=== PATIENT | female | born 1975 | race Caucasian/White ===

== ENCOUNTER 2018-03-31 17:10 | Inpatient (IN) | payer BC, MEDICAID, OTHER ==
--- NOTE | 2018-03-31 17:54 | ED PDOC ---
Arrival/HPI - General Chief Complaint: Fever Time Seen by Provider: 03/31/18 17:13 Historian: Patient - History of Present Illness Narrative History of Present Illness (Text): 03/31/18 17:44 42 year old female, with no significant past medical history and past social history of IVDA, presents to the ED from [facility] ED for evaluation of possible endocarditis today. Patient reports waking up noticing a mass on the right side of her neck, prompting her to present to [facility] ED for medical evaluation. Patient informs having a CT scan performed at the facility where she was made aware of a noted mass without requirement of drainage and was given Clindamycin and Zosyn, and was subsequently transferred to [facility] for further medical evaluation. Patient admits to heroin injection and states her last injection was a week ago. Patient informs pain to the right side of her throat otherwise denies any other associated somatic complaints. Patient denies any fever, chills, nausea, vomiting, abdominal pain, shortness of breath, chest pain, leg swelling or any other complaints. PMD: NONE 03/31/18 20:09 Time/Duration: 4-6 hours Symptom Onset: Gradual Symptom Course: Unchanged Quality: Aching Activities at Onset: Light Context: Other (Transferred from [facility] [place]) Past Medical History - Provider Review Nursing Documentation Reviewed: Yes - Infectious Disease Hx of Infectious Diseases: None - Tetanus Immunization Tetanus Immunization: Unknown - Cardiac Hx Cardiac Disorders: Yes Hx Hypertension: Yes - Pulmonary Hx Respiratory Disorders: No - Neurological Hx Neurological Disorder: No - HEENT Hx HEENT Disorder: No - Renal Hx Renal Disorder: No - Endocrine/Metabolic Hx Endocrine Disorders: No - Hematological/Oncological Hx Blood Disorders: No - Integumentary Hx Dermatological Disorder: No - Musculoskeletal/Rheumatological Hx Musculoskeletal Disorders: No - Gastrointestinal Hx Gastrointestinal Disorders: No - Genitourinary/Gynecological Hx Genitourinary Disorders: No - Psychiatric Hx Psychophysiologic Disorder: No Hx Substance Use: No - Surgical History Hx Tonsillectomy: Yes - Suicidal Assessment Feels Threatened In Home Enviroment: No Family/Social History - Physician Review Nursing Documentation Reviewed: Yes Family/Social History: Unknown Family HX Smoking Status: Current Some Days Smoker Hx Alcohol Use: Yes Hx Substance Use: No Hx Substance Use Treatment: No Allergies/Home Meds Allergies/Adverse Reactions: Allergies No Known Allergies Allergy (Verified 03/31/18 17:31) Home Medications: Home Meds Medication Instructions Recorded Confirmed MetFORMIN [glucOPHAGE] 1,000 mg PO BID 09/10/13 12/19/13 RX: Losartan [Cozaar] 100 mg PO DAILY 09/10/13 12/19/13 Hydrochlorothiazide [HCTZ] 25 mg PO DAILY 12/19/13 12/19/13 Hydroxychloroquine Sulfate 50 mg PO BID 12/19/13 12/19/13 [Plaquenil] Review of Systems - Physician Review All systems were reviewed & negative as marked: Yes - Review of Systems Constitutional: absent: Fevers Eyes: absent: Vision Changes ENT: Other (Mass to right side of the throat) Respiratory: absent: SOB, Cough Cardiovascular: absent: Chest Pain Gastrointestinal: absent: Abdominal Pain, Diarrhea, Nausea, Vomiting Genitourinary Female: absent: Dysuria, Urine Output Changes Musculoskeletal: absent: Back Pain, Neck Pain Skin: absent: Rash Neurological: absent: Headache, Dizziness Physical Exam Vital Signs Reviewed: Yes Vital Signs Temp Pulse Resp BP Pulse Ox 03/31/18 17:24 98.6 F 99 H 17 120/88 98 Temperature: Afebrile Blood Pressure: Normal Pulse: Tachycardic Respiratory Rate: Normal Appearance: Positive for: Well-Appearing, Non-Toxic, Comfortable Pain Distress: None Mental Status: Positive for: Alert and Oriented X 3 - Systems Exam Head: Present: Atraumatic, Normocephalic Pupils: Present: PERRL Extroacular Muscles: Present: EOMI Conjunctiva: Present: Normal Mouth: Present: Moist Mucous Membranes Neck: Present: Other (Right sided anterior mass noted. No airway involvement. No meningeal signs. ). No: Meningeal Signs Respiratory/Chest: Present: Clear to Auscultation, Good Air Exchange. No: Respiratory Distress, Accessory Muscle Use Cardiovascular: Present: Regular Rate and Rhythm, Normal S1, S2. No: Murmurs Abdomen: No: Tenderness, Distention, Peritoneal Signs Back: Present: Normal Inspection Upper Extremity: Present: NORMAL PULSES, Neurovascularly Intact, Other (Right AC 2x4 cm erythema noted, no fluctuance, no induration, no streaking. 2x3cm induration and erythema noted to left upper extremity. Finger tips nontender to palpation. Nail lithuanian on nails noted bilaterally.). No: Cyanosis, Edema Lower Extremity: Present: Normal Inspection. No: Edema Neurological: Present: GCS=15, CN II-XII Intact, Speech Normal Skin: Present: Warm, Dry, Normal Color. No: Rashes Psychiatric: Present: Alert, Oriented x 3, Normal Insight, Normal Concentration Medical Decision Making ED Course and Treatment: 03/31/18 17:38 Impression: 42 year old female presents to the ED for evaluation of right sided neck mass, Transferred from [facility] for Fever, rule out endocarditis as well. Was given Zosyn, Clinda, Fluids and tylenol by previous ER. Previous labs w/ out elevated WBC: lactic of 1.6. b/l AC cellulitis sites noted w/ out fluctuance. No crepitus. Noted erythema and induration. No swelling. No meningeal signs. R neck mass, without airway compromise. No change in phonation / dysphagia / odynophagia. L midline access noted, R midline access previously attempted by [facility]. Differential Diagnosis included but are not limited to: Endocarditis Plan: -- VBG -- EKG -- Labs -- Chest X-ray -- Tylenol -- Blood Culture -- Throat Culture -- Wound Culture -- Urinalysis -- Reassess and disposition Prior Visits: Notes and results from previous visits were reviewed. Progress Notes: 03/31/18 17:38 EKG: Ordered, reviewed, and independently interpreted the EKG. Rate : 97 BPM Rhythm : NSR Interpretation : No STEMI. 03/31/18 19:00 L Midline not flushing. Will seek central line placement. 03/31/18 19:25 PROCEDURE: CENTRAL LINE PLACEMENT Performed by the emergency provider, Time: 19:05 Consent: Discussion of the risks, benefits, and alternatives to the procedure, along with informed consent. Timeout: A timeout to verify the correct patient, procedure, and site was performed. Indication: Bilateral antecubital infections due to previous IV drug use as well as failed midline bilaterally. Right neck mass. Anesthesia: Local anesthesia Skin Preparation: Hand hygiene performed prior to central venous catheter insertion. Sterile field, sterile drape, sterile technique, and cap and gown were used. The area was cleansed with 2% Chlorhexidine. Patient position: Frogleg and supine Location: Right groin Ultrasound guidance: YES Technique: The landmarks for the line placement were identified. The vessel was cannulated and a non-tunneled 7.0 Fr triple lumen was placed using the Seldinger technique. Successful placement: YES . Line sutured with silk and appropriate dressing applied. Assessment: Good patency and blood return through all three lumens. The ports were appropriately flushed. Post-procedure: Patient tolerated the procedure well with no immediate complications 03/31/18 20:17 appreciate consult w/ Dr. Vasquez: Previous labs endorsed to Dr. vasquez: largely unremarkable. We are to admit to his service and order vanco 1g, place consult for ID Dr. Espinoza. Pt in NAD, agreeable to plan. - RAD Interpretation Radiology Orders: 03/31/18 17:38 CHEST TWO VIEWS (PA/LAT) [RAD] Stat - EKG Interpretation Interpreted by ED Physician: Yes Type: 12 lead EKG - Medication Orders Current Medication Orders: Discontinued Medications Acetaminophen (Tylenol 325mg Tab) 650 mg PO STAT STA Stop: 03/31/18 17:45 - Scribe Statement The provider has reviewed the documentation as recorded by the Scribe Hari Jiménez. All medical record entries made by the Scribe were at my direction and personally dictated by me. I have reviewed the chart and agree that the record accurately reflects my personal performance of the history, physical exam, medical decision making, and the department course for this patient. I have also personally directed, reviewed, and agree with the discharge instructions and disposition. Disposition/Present on Arrival - Present on Arrival Any Indicators Present on Arrival: No History of DVT/PE: No History of Uncontrolled Diabetes: Yes Urinary Catheter: No History of Decub. Ulcer: No History Surgical Site Infection Following: None - Disposition Have Diagnosis and Disposition been Completed?: Yes Diagnosis: Cellulitis Disposition: HOSPITALIZED Disposition Time: 20:17 Patient Problems: Current Active Problems Problem Status Onset Cellulitis Acute Condition: GUARDED
[2018-03-31 19:49] LABS: VENOUS BLOOD GAS BASE EXCESS 0.3 mmol/L (0.0-2.0); VENOUS BLOOD GAS PO2 40 mm/Hg (30-55); VENOUS BLOOD PH 7.46 (7.32-7.43)
[2018-03-31 19:54] LABS: EOS % 0.2 % (1.5-5.0); GRAN # 5.6 (1.4-6.5); GRAN % 86.5 % (50.0-68.0); HEMOGLOBIN 11.2 g/dL (12.0-16.0); LYMPH # 0.4 (1.2-3.4); LYMPH % 6.8 % (22.0-35.0); MEAN CELL VOLUME 87.3 fl (80.0-105.0); MEAN CORPUSCULAR HEMOGLOBIN 29.6 pg (25.0-35.0); MEAN CORPUSCULAR HGB CONC 33.8 g/dl (31.0-37.0); MEAN PLATELET VOLUME 10.1 fl (7.0-11.0); MONO # 0.4 (0.1-0.6); MONO % 6.5 % (1.0-6.0); RBC 3.79 10^6/uL (3.5-6.1); RED CELL DISTRIBUTION WIDTH 12.9 % (11.5-14.5); WHITE BLOOD COUNT 6.5 10^3/uL (4.5-11.0)
[2018-03-31] MEDS ORDERED: Vancomycin 1gm in NS 250ml 1 GM/250 ML BAG IVPB STA (20:24)
[2018-03-31 21:09] LABS: ALB/GLOB RATIO 0.9 (1.1-1.8); ALBUMIN 3.3 g/dL (3.0-4.8); ALT/SGPT 27 U/L (7-56); AST/SGOT 35 U/L (14-36); BLOOD UREA NITROGEN 15 mg/dL (7-21); CALCIUM 8.3 mg/dL (8.4-10.5); GFR NON-AFRICAN AMERICAN > 60
[2018-03-31 21:25] LABS: PH,URINE 6.5 (4.7-8.0); URINE BILIRUBIN SMALL (NEGATIVE); URINE BLOOD LARGE (NEGATIVE); URINE GLUCOSE (UA) NEGATIVE (NEGATIVE); URINE LEUKOCYTE ESTERASE NEGATIVE Leu/uL (NEGATIVE); URINE PROTEIN 100 mg/dL (<30 mg/dL)
[2018-03-31 21:26] LABS: URINE APPEARANCE SLIGHT-CLOUDY (CLEAR); URINE COLOR DARK YELLOW (YELLOW)
[2018-03-31 21:28] LABS: URINE WBC 0 - 2 /hpf (0-6)
[2018-03-31 21:29] LABS: URINE BACTERIA NEG (NEG)
--- NOTE | 2018-03-31 21:39 | CARD ---
APPROVED REPORT Date of service: 03/31/2018 EKG Measurement Heart [id number] <Conclusion> Normal sinus rhythm Normal ECG
[2018-03-31 21:40] LABS: TROPONIN I < 0.01 ng/mL
[2018-03-31] MEDS: Vancomycin 1gm in NS 250ml 1 GM/250 ML BAG IVPB SCH (23:55)
[2018-04-01] MEDS ORDERED: Sodium Chloride 0.9% 1,000 ML IV SCH (01:00)
[2018-04-01] MEDS: Piperacillin/Tazobact 3.375 gm 100 ML IVPB SCH ×3 (05:31→21:54)
--- NOTE | 2018-04-01 07:35 | CP.PCM.CON ---
<Aguila Cintron - Last Filed: 04/01/18 11:31> History of Present Illness - History of Present Illness History of Present Illness: Infectious disease consult note for Dr. Duran/Dr. Espinoza service - Vinnie Cintron PGY3 HPI: Patient is a 42yo female with past medical history of IVDA that [facility] [place] for concerns of endocarditis. Patient reportedly discovered a right-sided neck mass which prompted her evaluation [place] [facility] [place] She underwent CT imaging, given clindamycin/zosyn and [place] [facility]. She endorsed injecting heroin regularly with her last injection noted to be a week prior. She subsequently developed right-sided neck/throat pain. Otherwise, she denied fever, chills, cough, chest pain, palpitations, SOB, abdominal pain, nausea, vomiting, focal weakness, numbness, tingling, dysuria, frequency, urgency. ID consulted for evaluation of right-sided neck erythema as well as r/o endocarditis. PMH: as stated above PSH: denies Allergies: NKDA Social Hx: notable for IV drug use (heroin) Family Hx: Noncontributory PMD: Denies Past Patient History - Infectious Disease Hx of Infectious Diseases: None - Tetanus Immunizations Tetanus Immunization: Unknown - Past Social History Smoking Status: Heavy Smoker > 10 Cigarettes Daily - CARDIAC Hx Cardiac Disorders: Yes Hx Angina: No Hx Cardia Arrhythmia: No Hx Circulatory Problems: No Hx Congestive Heart Failure: No Hx Heart Murmur: No Hx Heart Transplant: No Hx Hypercholesterolemia: No Hx Hypertension: Yes Hx Internal Defibrillator: No Hx Mitral Valve Prolapse: No Hx Pacemaker: No Hx Peripheral Edema: No Hx Peripheral Vascular Disease: No - PULMONARY Hx Respiratory Disorders: No Hx Asthma: No Hx Bronchitis: No Hx Chronic Obstructive Pulmonary Disease (COPD): No Hx Emphysema: No Hx Pneumonia: No Hx Respiratory Aspiration: No Hx Respiratory Tract Infection: No Hx Sleep Apnea: No Hx Tuberculosis: No - NEUROLOGICAL Hx Neurological Disorder: No Hx Alzheimer's Disease: No HX Cerebrovascular Accident: No Hx Dementia: No Hx Dizziness: No Hx Meningitis: No Hx Migraine: No Hx Parkinson's Disease: No Hx Seizures: No Hx Transient Ischemic Attacks (TIA): No - HEENT Hx HEENT Problems: No Hx Blind: No Hx Cataracts: No Hx Deafness: No Hx Difficulty Chewing: No Hx Epistaxis: No Hx Glaucoma: No Hx Macular Degeneration: No - RENAL Hx Chronic Kidney Disease: No Hx Dialysis: No Hx Kidney Stones: No Hx Neurogenic Bladder: No Hx Pyelonephritis: No Hx Renal (Kidney) Cancer: No Hx Renal Failure: No - ENDOCRINE/METABOLIC Hx Endocrine Disorders: No Hx Adrenal Cancer: No Hx Diabetes Insipidus: No Hx Diabetes Mellitus Type 1: No Hx Diabetes Mellitus Type 2: No Hx Hyperthyroidism: No Hx Hypothyroidism: No Hx Systemic Lupus Erythematosus: No - HEMATOLOGICAL/ONCOLOGICAL Hx Blood Disorders: No Hx AIDS: No Hx Anemia: No Hx Cancer: No Hx Chemotherapy: No Hx Cirrhosis: No Hx Hemophilia: No Hx Hepatitis A: No Hx Hepatitis B: No Hx Hepatitis C: No Hx Human Immunodeficiency Virus (HIV): No Hx Metastesis: No Hx Shingles: No Hx Sickle Cell Disease: No Hx Unexplained Bleeding: No - INTEGUMENTARY Hx Dermatological Problems: No Hx Basil Cell: No Hx Eczema: No Hx Melanoma: No Hx Psoriasis: No Hx Squamous Cell: No - MUSCULOSKELETAL/RHEUMATOLOGICAL Hx Musculoskeletal Disorders: Yes Hx Arthritis: No Hx Back Pain: No Hx Degenerative Joint Disease: No Hx Falls: No Hx Fractures: No Hx Gout: No Hx Herniated Disk: No Hx Myasthenia Gravis: No Hx Osteoarthritis: No Hx Osteomyelitis: No Hx Osteoporosis: No Hx Rhabdomyolysis: No Hx Spinal Stenosis: No Hx Unsteady Gait: Yes - GASTROINTESTINAL Hx Gastrointestinal Disorders: No Hx Colostomy: No Hx Crohn's Disease: No Hx Diverticulitis: No Hx Gall Bladder Disease: No Hx Gastroesophageal Reflux: No Hx Ileostomy: No Hx Liver Failure: No Hx Pancreatitis: No HX Swallowing Problems: No Hx Ulcer: No - GENITOURINARY/GYNECOLOGICAL Hx Genitourinary Disorders: No Hx Hematuria: No Hx Incontinence: No Hx Sexually Transmitted Disorders: No Hx Urinary Tract Infection: No - PSYCHIATRIC Hx Psychophysiologic Disorder: Yes Hx Anxiety: No Hx Bipolar Disorder: No Hx Depression: Yes Hx Emotional Abuse: No Hx Hallucinations: No Hx Panic Symptoms: No Hx Paranoia: No Hx Post Traumatic Stress Disorder: No Hx Psychosis: No Hx Physical Abuse: No Hx Schizophrenia: No Hx Sexual Abuse: No Hx Substance Use: Yes (IV drug user) - SURGICAL HISTORY Hx Surgeries: Yes (tonsillectomy, ) Hx Amputation: No Hx Appendectomy: No Hx Cardiac Catheterization: No Hx Cholecystectomy: No Hx Coronary Stent: No Hx Gastric Bypass Surgery: No Hx Hysterectomy: No Hx Joint Replacement: No Hx Kidney Transplant: No Hx Liver Transplant: No Hx Mastectomy: No Hx Musculoskeletal Surgery: No Hx Open Heart Surgery: No Hx Orthopedic Surgery: No Hx Splenectomy: No Hx Valve Replacement: No Meds Allergies/Adverse Reactions: Allergies Allergy/AdvReac Type Severity Reaction Status Date / Time No Known Allergies Allergy Verified 03/31/18 17:31 - Medications Medications: Current Medications Vancomycin HCl (Vancomycin 1gm) 1 gm in 250 mls @ 167 mls/hr IVPB Q12H [facility]; Protocol Stop: 04/09/18 23:01 Last Admin: 03/31/18 23:55 Dose: 167 mls/hr Piperacillin Sod/Tazobactam Sod (Zosyn 3.375 In Ns 100ml) 100 mls @ 25 mls/hr IVPB Q8 [facility]; Protocol Stop: 04/10/18 06:01 Last Admin: 04/01/18 05:31 Dose: 25 mls/hr Sodium Chloride (Sodium Chloride 0.9%) 1,000 mls @ 100 mls/hr IV .Q10H CHAVA Last Admin: 04/01/18 01:00 Dose: 100 mls/hr Physical Exam - Constitutional Appears: No Acute Distress - Head Exam Head Exam: ATRAUMATIC, NORMAL INSPECTION, NORMOCEPHALIC - Eye Exam Eye Exam: EOMI Pupil Exam: PERRL - ENT Exam ENT Exam: Mucous Membranes Moist - Neck Exam Additional comments: right-sided anterior neck mass/erythema - Respiratory Exam Respiratory Exam: Clear to Auscultation Bilateral. absent: Rales, Rhonchi, Wheezes - Cardiovascular Exam Cardiovascular Exam: +S1, +S2. absent: Clicks, Gallop, Rubs - GI/Abdominal Exam GI & Abdominal Exam: Normal Bowel Sounds, Soft. absent: Distended, Firm, Guarding, Hernia, Rigid, Tenderness - Extremities Exam Additional comments: erythema noted to right antecubital fossa; ~2x3cm erythema and induration noted to LUE - Neurological Exam Neurological exam: Alert, CN II-XII Intact, Oriented x3 - Psychiatric Exam Psychiatric exam: Normal Affect, Normal Mood - Skin Skin Exam: Dry, Intact, Normal Color, Warm Results - Vital Signs Recent Vital Signs: Last Vital Signs Temp 102.3 F H 04/01/18 06:14 Pulse 91 H 04/01/18 05:50 Resp 20 04/01/18 05:50 BP 136/71 04/01/18 05:50 Pulse Ox 98 04/01/18 05:50 - Labs Result Diagrams: 03/31/18 19:30 03/31/18 19:30 Labs: Laboratory Results - last 24 hr 03/31/18 03/31/18 03/31/18 19:30 19:30 19:45 WBC 6.5 RBC 3.79 Hgb 11.2 L Hct 33.1 L MCV 87.3 MCH 29.6 MCHC 33.8 RDW 12.9 Plt Count 129 MPV 10.1 Gran % 86.5 H Lymph % (Auto) 6.8 L [place] % (Auto) 6.5 H Eos % (Auto) 0.2 L Baso % (Auto) 0.0 Gran # 5.60 Lymph # (Auto) 0.4 L [place] # (Auto) 0.4 Eos # (Auto) 0.0 Baso # (Auto) 0.00 ESR 140 H pO2 40 VBG pH 7.46 H VBG pCO2 33.0 L VBG HCO3 23.5 VBG Total CO2 24.5 VBG O2 Sat (Calc) 82.4 H VBG Base Excess 0.3 VBG Potassium 3.8 Glucose 169 H Lactate 1.5 FiO2 21.0 Sodium 134 135.0 Potassium 3.7 Chloride 104 103.0 Carbon Dioxide 22 Anion Gap 12 BUN 15 Creatinine 0.7 Est GFR ( Amer) > 60 Est GFR (Non-Af Amer) > 60 Random Glucose 171 H Calcium 8.3 L Magnesium 1.7 Total Bilirubin 0.9 AST 35 ALT 27 Alkaline Phosphatase 121 Total Creatine Kinase 134 Troponin I < 0.01 Total Protein 7.0 Albumin 3.3 Globulin 3.6 Albumin/Globulin Ratio 0.9 L Venous Blood Potassium 3.8 Urine Color Urine Appearance Urine pH Ur Specific [place] Urine Protein Urine Glucose (UA) Urine Ketones Urine Blood Urine Nitrate Urine Bilirubin Urine Urobilinogen Ur Leukocyte Esterase Urine RBC Urine WBC Ur Epithelial Cells Urine Bacteria 03/31/18 21:14 WBC RBC Hgb Hct MCV MCH MCHC RDW Plt Count MPV Gran % Lymph % (Auto) [place] % (Auto) Eos % (Auto) Baso % (Auto) Gran # Lymph # (Auto) [place] # (Auto) Eos # (Auto) Baso # (Auto) ESR pO2 VBG pH VBG pCO2 VBG HCO3 VBG Total CO2 VBG O2 Sat (Calc) VBG Base Excess VBG Potassium Glucose Lactate FiO2 Sodium Potassium Chloride Carbon Dioxide Anion Gap BUN Creatinine Est GFR ( Amer) Est GFR (Non-Af Amer) Random Glucose Calcium Magnesium Total Bilirubin AST ALT Alkaline Phosphatase Total Creatine Kinase Troponin I Total Protein Albumin Globulin Albumin/Globulin Ratio Venous Blood Potassium Urine Color Dark yellow Urine Appearance Slight-cloudy Urine pH 6.5 Ur Specific [place] 1.010 Urine Protein 100 H Urine Glucose (UA) Negative Urine Ketones Negative Urine Blood Large H Urine Nitrate Negative Urine Bilirubin Small H Urine Urobilinogen 1.0 H Ur Leukocyte Esterase Negative Urine RBC 1 - 3 Urine WBC 0 - 2 Ur Epithelial Cells 3 - 4 Urine Bacteria Neg Assessment & Plan - Assessment and Plan (Free Text) Plan: 42yo female with history of IVDA (heroin with last injection last week) presents with right-sided neck mass/pain. ID consulted for evaluation of possible endocarditis. right-sided neck cellulitis r/o endocarditis IV drug abuse normocytic anemia Plan: -Patient has empirically been started on zosyn/vancomycin pending panculture -Ultrasound of the neck has been ordered to r/o abscess -Warm compresses to neck -Patient presently only fulfills 2 minor Serna critera: fever and IV drug use; thus endocarditis is less likely -CRP has been ordered -ESR is elevated at 140 -no leukocytosis however patient has had fevers with tmax of 102.8 -HIV 4th gen is pending given her age -EKG reviewed -CXR reviewed Patient seen and case discussed/reviewed with attending, Dr. Duran <Stanford Duran - Last Filed: 04/01/18 21:11> Meds - Medications Medications: Current Medications Alprazolam (Xanax) 1 mg PO TID PRN; Protocol PRN Reason: Anxiety Enoxaparin Sodium (Lovenox) 40 mg SC DAILY [facility]; Protocol Gabapentin (Neurontin) 100 mg PO TID [facility]; Protocol Last Admin: 04/01/18 18:12 Dose: 100 mg Home Med (Home Med) 0 unit SL TID PRN PRN Reason: drug craving Vancomycin HCl (Vancomycin 1gm) 1 gm in 250 mls @ 167 mls/hr IVPB Q12H [facility]; Protocol Stop: 04/09/18 23:01 Last Admin: 04/01/18 11:41 Dose: 167 mls/hr Piperacillin Sod/Tazobactam Sod (Zosyn 3.375 In Ns 100ml) 100 mls @ 25 mls/hr IVPB Q8 [facility]; Protocol Stop: 04/10/18 06:01 Last Admin: 04/01/18 14:49 Dose: 25 mls/hr Losartan Potassium (Cozaar) 100 mg PO DAILY [facility] Last Admin: 04/01/18 11:40 Dose: 100 mg Metformin HCl (Glucophage) 850 mg PO BID [facility] Last Admin: 04/01/18 18:13 Dose: 850 mg Mirtazapine (Remeron) 15 mg PO HS [facility] Nicotine (Nicoderm Cq) 1 patch TD DAILY [facility] Last Admin: 04/01/18 18:13 Dose: 1 patch Results - Vital Signs Recent Vital Signs: Last Vital Signs Temp 98.1 F 04/01/18 18:00 Pulse 91 H 04/01/18 18:00 Resp 19 04/01/18 18:00 BP 127/72 04/01/18 18:00 Pulse Ox 98 04/01/18 05:50 - Labs Result Diagrams: 03/31/18 19:30 03/31/18 19:30 Labs: Laboratory Results - last 24 hr 03/31/18 03/31/18 03/31/18 19:30 19:30 21:14 Sodium 134 Potassium 3.7 Chloride 104 Carbon Dioxide 22 Anion Gap 12 BUN 15 Creatinine 0.7 Est GFR ( Amer) > 60 Est GFR (Non-Af Amer) > 60 POC Glucose (mg/dL) Random Glucose 171 H Calcium 8.3 L Magnesium 1.7 Total Bilirubin 0.9 AST 35 ALT 27 Alkaline Phosphatase 121 Total Creatine Kinase 134 Troponin I < 0.01 C-Reactive Protein 264.50 H Total Protein 7.0 Albumin 3.3 Globulin 3.6 Albumin/Globulin Ratio 0.9 L Urine Color Dark yellow Urine Appearance Slight-cloudy Urine pH 6.5 Ur Specific [place] 1.010 Urine Protein 100 H Urine Glucose (UA) Negative Urine Ketones Negative Urine Blood Large H Urine Nitrate Negative Urine Bilirubin Small H Urine Urobilinogen 1.0 H Ur Leukocyte Esterase Negative Urine RBC 1 - 3 Urine WBC 0 - 2 Ur Epithelial Cells 3 - 4 Urine Bacteria Neg 04/01/18 04/01/18 04/01/18 11:42 17:32 17:38 Sodium Potassium Chloride Carbon Dioxide Anion Gap BUN Creatinine Est GFR ( Amer) Est GFR (Non-Af Amer) POC Glucose (mg/dL) 159 H 89 133 H Random Glucose Calcium Magnesium Total Bilirubin AST ALT Alkaline Phosphatase Total Creatine Kinase Troponin I C-Reactive Protein Total Protein Albumin Globulin Albumin/Globulin Ratio Urine Color Urine Appearance Urine pH Ur Specific [place] Urine Protein Urine Glucose (UA) Urine Ketones Urine Blood Urine Nitrate Urine Bilirubin Urine Urobilinogen Ur Leukocyte Esterase Urine RBC Urine WBC Ur Epithelial Cells Urine Bacteria Assessment & Plan - Assessment and Plan (Free Text) Plan: Infectious diseases Attending Physician Attestation Patient seen and examined, discussed with medical office administrator. I have reviewed the patient's history of present illness, past medical, social, personal and family histories, pertinent physical exam findings, course so far in this hospital admission, pertinent laboratory and imaging results. I agree with the above findings, assessment and plan. In addition, we have started Vancomycin for this patient with neck skin and skin structure infection, R/O abscess. Follow up ultrasound of the neck and check blood cx. Check HIV test. Will monitor clinically.
--- NOTE | 2018-04-01 09:40 | RAD ---
Date of service: 03/31/2018 PROCEDURE: CHEST RADIOGRAPH, 1 VIEW HISTORY: ?endocarditis COMPARISON: None available. FINDINGS: LUNGS: Right lower lobe infiltrate/atelectasis (linear). She PLEURA: No pneumothorax or pleural fluid seen. CARDIOVASCULAR: No aortic atherosclerotic calcification present. Normal. OSSEOUS STRUCTURES: No significant abnormalities. VISUALIZED UPPER ABDOMEN: Normal. OTHER FINDINGS: None. IMPRESSION: Right lower lobe infiltrate/atelectasis accentuated by portable technique and low lung volumes
[2018-04-01] MEDS: Vancomycin 1gm in NS 250ml 1 GM/250 ML BAG IVPB SCH (11:41)
--- NOTE | 2018-04-01 15:19 | US ---
Date of service: 04/01/2018 PROCEDURE: Ultrasound examination of the right neck soft tissue HISTORY: US of right neck to r/o abscess COMPARISON: No prior similar study available for comparison. TECHNIQUE: Limited ultrasound examination of the right neck were obtained. FINDINGS: The study demonstrate multiple small soft tissue nodule at the right neck with the largest measures 0.7 x 0.6 x 0.8 centimeter likely represent enlarged lymph nodes. No evidence of lymphadenopathy in the left neck. The right jugular vein and right common carotid artery are patent.. IMPRESSION: Multiple soft tissue nodules in the right neck likely represent mildly enlarged lymph nodes.
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
[2018-04-02] MEDS: Vancomycin 1gm in NS 250ml 1 GM/250 ML BAG IVPB SCH (00:27)
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
[2018-04-02 02:21] LABS: BARBITURATES, UR NEGATIVE (NEGATIVE); BENZODIAZEPINES, UR POSITIVE (NEGATIVE); OPIATES, UR POSITIVE (NEGATIVE); PHENCYCLIDINE, UR NEGATIVE (NEGATIVE)
[2018-04-02] MEDS: Piperacillin/Tazobact 3.375 gm 100 ML IVPB SCH ×3 (05:19→21:16)
[2018-04-02] MEDS ORDERED: DAPTOmycin 500 mg Inj (Cubicin) IV SCH (07:00)
[2018-04-02 07:03] LABS: GLUCOSE,FASTING 164 mg/dL (65-110); HDL CHOLESTEROL 15 mg/dL (29-60)
[2018-04-02 07:15] LABS: LDL CHOLESTEROL 72 mg/dL (0-129)
[2018-04-02] MEDS: Enoxaparin 40 mg Syringe SC SCH (10:22)
[2018-04-02] MEDS: DAPTOmycin 700 MG in Sodium Chloride 0.9% 100 ML IV SCH (10:22)
[2018-04-02 10:36] VITALS: BMI 27.4
--- NOTE | 2018-04-02 19:04 | CP.PCM.PN ---
Subjective - Date & Time of Evaluation Date of Evaluation: 04/02/18 Time of Evaluation: 10:40 - Subjective Subjective: Still having fevers, no nausea, not in distress but still with right sided neck and chest pain. Objective - Vital Signs/Intake and Output Vital Signs (last 24 hours): Temp Pulse Resp BP Pulse Ox 98.1 F 91 H 19 127/72 98 04/01/18 18:00 04/01/18 18:00 04/01/18 18:00 04/01/18 18:00 04/01/18 05:50 Intake and Output: 04/01/18 04/02/18 18:59 06:59 Intake Total 550 Balance 550 - Medications Medications: Current Medications Alprazolam (Xanax) 1 mg PO TID PRN; Protocol PRN Reason: Anxiety Enoxaparin Sodium (Lovenox) 40 mg SC DAILY [facility]; Protocol Gabapentin (Neurontin) 100 mg PO TID [facility]; Protocol Last Admin: 04/01/18 18:12 Dose: 100 mg Home Med (Home Med) 0 unit SL TID PRN PRN Reason: drug craving Vancomycin HCl (Vancomycin 1gm) 1 gm in 250 mls @ 167 mls/hr IVPB Q12H [facility]; Protocol Stop: 04/09/18 23:01 Last Admin: 04/01/18 11:41 Dose: 167 mls/hr Piperacillin Sod/Tazobactam Sod (Zosyn 3.375 In Ns 100ml) 100 mls @ 25 mls/hr IVPB Q8 [facility]; Protocol Stop: 04/10/18 06:01 Last Admin: 04/01/18 14:49 Dose: 25 mls/hr Losartan Potassium (Cozaar) 100 mg PO DAILY [facility] Last Admin: 04/01/18 11:40 Dose: 100 mg Metformin HCl (Glucophage) 850 mg PO BID [facility] Last Admin: 04/01/18 18:13 Dose: 850 mg Mirtazapine (Remeron) 15 mg PO HS [facility] Nicotine (Nicoderm Cq) 1 patch TD DAILY [facility] Last Admin: 04/01/18 18:13 Dose: 1 patch - Labs Labs: 03/31/18 19:30 03/31/18 19:30 - Constitutional Appears: Chronically Ill - Head Exam Head Exam: NORMAL INSPECTION - Neck Exam Additional comments: erythema and tenderness on the right neck and chest area - Respiratory Exam Respiratory Exam: Decreased Breath Sounds - Cardiovascular Exam Cardiovascular Exam: +S1, +S2 - GI/Abdominal Exam GI & Abdominal Exam: Soft. absent: Tenderness Assessment and Plan - Assessment and Plan (Free Text) Plan: Assessment Sepsis due to Staph aureus bacteremia associated with right neck and chest skin and skin structure infection, R/O endocarditis in this patient with IVDA morbid obesity with BMI 47 Plan Started patient on Daptomycin pending repeat blood cx, 2D echo follow up HIV test will monitor clinically
[2018-04-02] MEDS: SUBOXONE SL PRN (22:19)
[2018-04-03] MEDS: SUBOXONE SL PRN ×3 (05:15→20:29)
[2018-04-03] MEDS: Piperacillin/Tazobact 3.375 gm 100 ML IVPB SCH ×3 (05:16→21:46)
[2018-04-03] MEDS: DAPTOmycin 700 MG in Sodium Chloride 0.9% 100 ML IV SCH (08:09)
[2018-04-03] MEDS: Enoxaparin 40 mg Syringe SC SCH (09:27)
--- NOTE | 2018-04-03 10:40 | CP.PCM.PN ---
Subjective - Date & Time of Evaluation Date of Evaluation: 04/03/18 Time of Evaluation: 09:10 - Subjective Subjective: Still having pains in the right chest, extends to right shoulder area (pain), no fevers this morning, no abdominal pain but feels anxious. Objective - Vital Signs/Intake and Output Vital Signs (last 24 hours): Temp Pulse Resp BP Pulse Ox 98.4 F 79 18 134/69 95 04/02/18 15:58 04/02/18 12:00 04/02/18 12:00 04/02/18 12:00 04/02/18 06:00 Intake and Output: 04/02/18 04/03/18 18:59 06:59 Intake Total 540 Output Total 900 Balance -360 - Medications Medications: Current Medications Acetaminophen (Tylenol 325mg Tab) 650 mg PO Q6H PRN PRN Reason: Fever >100.4 F Last Admin: 04/02/18 14:58 Dose: 650 mg Alprazolam (Xanax) 1 mg PO TID PRN; Protocol PRN Reason: Anxiety Last Admin: 04/02/18 17:48 Dose: 1 mg Enoxaparin Sodium (Lovenox) 40 mg SC DAILY [facility]; Protocol Last Admin: 04/02/18 10:22 Dose: 40 mg Gabapentin (Neurontin) 100 mg PO TID [facility]; Protocol Last Admin: 04/02/18 17:48 Dose: 100 mg Home Med (Home Med) 0 unit SL TID PRN PRN Reason: drug craving Piperacillin Sod/Tazobactam Sod (Zosyn 3.375 In Ns 100ml) 100 mls @ 25 mls/hr IVPB Q8 [facility]; Protocol Stop: 04/10/18 06:01 Last Admin: 04/02/18 14:20 Dose: 25 mls/hr Daptomycin 700 mg/ Sodium (Chloride) 100 mls @ 200 mls/hr IV Q24H [facility] Stop: 04/07/18 07:16 Last Admin: 04/02/18 10:22 Dose: 200 mls/hr Ketorolac Tromethamine (Toradol) 30 mg IVP Q6 PRN PRN Reason: Pain, moderate (4-7) Stop: 04/04/18 14:00 Last Admin: 04/02/18 14:58 Dose: 30 mg Losartan Potassium (Cozaar) 100 mg PO DAILY [facility] Last Admin: 04/02/18 10:22 Dose: 100 mg Metformin HCl (Glucophage) 850 mg PO BID [facility] Last Admin: 04/02/18 17:48 Dose: 850 mg Mirtazapine (Remeron) 15 mg PO HS [facility] Last Admin: 04/01/18 21:54 Dose: 15 mg Nicotine (Nicoderm Cq) 1 patch TD DAILY [facility] Last Admin: 04/02/18 10:22 Dose: 1 patch Pantoprazole Sodium (Protonix Inj) 40 mg IVP DAILY [facility] Last Admin: 04/02/18 14:58 Dose: 40 mg - Labs Labs: 03/31/18 19:30 03/31/18 19:30 - Constitutional Appears: No Acute Distress, Chronically Ill - Head Exam Head Exam: NORMAL INSPECTION - ENT Exam ENT Exam: Mucous Membranes Moist - Neck Exam Neck Exam: absent: Meningismus - Respiratory Exam Respiratory Exam: Decreased Breath Sounds - Cardiovascular Exam Cardiovascular Exam: +S1, +S2 - GI/Abdominal Exam GI & Abdominal Exam: Soft. absent: Tenderness - Extremities Exam Additional comments: right anterior chest area with tenderness and erythema Assessment and Plan - Assessment and Plan (Free Text) Plan: Assessment Sepsis due to persistent Methicillin-sensitive Staph aureus bacteremia associated with right neck and chest skin and skin structure infection, R/O right arm skin and skin structure infection R/O endocarditis in this patient with IVDA morbid obesity with BMI 47 Plan we can switch Daptomycin to Nafcillin; repeat blood cx are still positive and will repeat again tomorrow; follow up 2D echo and will get CT chest and CT right arm follow up HIV test will continue to monitor clinically
--- NOTE | 2018-04-03 16:38 | CT ---
Date of service: 04/03/2018 Indication: rule out right arm abscess/inflammation Right upper extremity with IV contrast Comparison: None available Findings: Limited study due to patient condition/motion and habitus. Partially imaged soft tissue stranding and numerous sub cm lymph nodes within the included portions of the lower neck. No discrete abscess or fluid collection noted within the soft tissues of the right lateral chest wall. Please note that the right arm was not imaged. Included ribs without acute displaced fracture. Humeral head is located. The distal right clavicle and scapula appear intact. The proximal humerus without acute fracture. Limited included soft tissues of the right upper extremity without discrete abscess or fluid collection.. Impression: Markedly limited study. Please note that the patient's right arm was not imaged. No discrete fluid collection or abscess evident within the included portions of the right lateral chest wall or limited visualized upper extremity soft tissues. Partially imaged soft tissue stranding and numerous sub cm lymph nodes within the included portions of the lower neck.
--- NOTE | 2018-04-03 16:58 | CT ---
Date of service: 04/03/2018 CT chest with IV contrast Indication: rule out right chest wall abscess/inflammation Technique: Contiguous axial images were obtained through the chest with intravenous contrast enhancement. Sagittal and coronal reconstructions were generated and reviewed. This CT exam was performed using 1 or more of the following dose reduction techniques: Automated exposure control, adjustment of the MAA and/or kV according to patient size, and/or use of iterative reconstruction technique. IV contrast: 150 mL Omnipaque 350 IV Radiation dose (DLP): 780.96 MGy-cm. Comparison: Chest x-ray performed 03/31/18 Findings: Soft tissue swelling, stranding, and foci of gas evident within the infraclavicular space: Ill-defined suspected abscess possibly measuring approximately 1.5 x 3.1 cm (series 4, image 21). There is evidence of supraclavicular subcutaneous stranding and phlegmon. Additionally, please note asymmetry of the right to arouse major and sternocleidomastoid muscle consistent with inflammation/infection. Innumerable lymph nodes evident throughout the lower neck and axilla. Heterogeneous appearance of the right internal jugular vein worrisome for thrombus. Visualized portions of the inferior thyroid gland appear unremarkable. The heart appears within normal limits of size. Sub cm prevascular nodes nonspecific. Mild bibasilar atelectasis. No pleural effusion. No pneumothorax. Limited visualization of the upper abdomen demonstrates partially imaged splenomegaly. Degenerative changes of the spine. Impression: Soft tissue swelling, stranding, and foci of gas evident within the infraclavicular space appears consistent with abscess. There is evidence of supraclavicular subcutaneous stranding and phlegmon. Additionally, please note asymmetry of the right musculature of the chest likely resultant from inflammation/infection. Innumerable lymph nodes within the right axilla and lower neck. Heterogeneous appearance of the right internal jugular vein worrisome for thrombus. Recommend correlation with Doppler ultrasound. Partially imaged splenomegaly. Findings discussed with the patient's RN James Reeves on 04/03/18 at 4:50 p.m..
--- NOTE | 2018-04-03 23:49 | HP ---
DATE OF EXAM: 04/01/2018 REASON FOR ADMISSION: She has fever, neck mass , and history of IV drug abuse of heroin. HISTORY OF PRESENT ILLNESS: This is a 42-year-old female who complained of having problem with heroin IV use for years. She has been using that for almost 10 plus years and by friends give it to her, she lives with her sister, and sister's boyfriend apartment. She has 2 children. The patient is not working. As she mentioned, she has been using drugs. She got recent enlarged mass seen in [facility] for the same reason was discharged, however, the patient came in because of same symptoms of pain, neck mass, fever, and feeling sick and weak. She denied any nausea or vomiting. PAST MEDICAL HISTORY: As I mentioned obesity,hypertension, diabetes, IV drug use of heroin for years. SOCIAL HISTORY: She smokes almost 1-1/2 pack a day. She does not drink alcohol. She uses heroin and she is having both bilaterally and she lives with her sister and her sister's boyfriend with 2 children. FAMILY HISTORY: Noncontributory. MEDICATIONS: She does take her medications at home. She takes tramadol t.i.d., Suboxone, 1 time, she takes Bactrim, Cozaar, Plaquenil, hydrochlorothiazide 25 mg, she is getting clindamycin recently and she was getting Xanax 2 mg four times a day. We are not clear how many times she is taking. PHYSICAL EXAMINATION: VITAL SIGNS: Temperature 102.3, heart rate 91, blood pressure 136/71, respirations 20, saturation 98%. HEAD AND NECK: Normal except there is large right neck mass with multiple nodularity. CHEST: Clear bilateral. CARDIOVASCULAR: First sound and second sound normal. ABDOMEN: Obese and nontender. EXTREMITIES: There is no edema, but there is some scratches and scars. Also, there is right inguinal IV site. NEUROLOGICAL: She moves all extremities. She is alert, awake, and oriented x3. REVIEW OF SYSTEMS: She does complain of weakness. She also have denied any focal weakness like in leg or arm. Does not have any other symptoms. No GI symptoms. No respiratory symptoms, except the whole review of systems are negative except for in present illness. LABORATORY DATA: White count 6.5, hemoglobin 11.2, hematocrit 33.1, and platelets 129. Chemistry which shows the following; sodium 134, potassium 3.7, chloride 104, bicarbonate 22, BUN is 15, and creatinine 0.7. Blood sugar 171, calcium 8.3. Liver function test is normal. C-reactive protein is very high 264. IMPRESSION AND PLAN: This is a 42-year-old female with a history of intravenous drug use of heroin. She also has hypertension, diabetes, came in over the neck mass, cellulitis in the antecubital area, and fever. We will admit the patient. 1. For stability, we will get blood cultures x2. We will give vancomycin and Zosyn for now IV. ID consult is Dr. Espinoza. 2. History of intravenous drug use. We will give her Suboxone strips. She has been using it to get it from outpatient for now. The patient advised not to take any drugs from anybody while you are in the hospital. She may need to be on medications, probably in an injectable form and outpatient for prevention for heroin abuse. The patient will need a psychiatric evaluation, which has been consulted. She need social and she need some cognitive therapy, family therapy, and probably narcotic anonymous program to be attending. She should be encouraged to addend these and to be working with us. 3. Diabetes, hypertension; resume medication monitor blood pressure. 4. Tobacco abuse. We will give her a Nicorette patch. I will give her 1 patch at night and I will see she will do. We are going to add also Neurontin, , and Suboxone to control her symptoms. She does not seem she need clonidine because of hypertension side effects, we will continue current therapy. Dom Steele MD
[2018-04-04] MEDS: Piperacillin/Tazobact 3.375 gm 100 ML IVPB SCH (05:26)
[2018-04-04] MEDS: SUBOXONE SL PRN (05:48)
--- NOTE | 2018-04-04 07:45 | CP.PCM.PN ---
Subjective - Date & Time of Evaluation Date of Evaluation: 04/04/18 Time of Evaluation: 06:20 - Subjective Subjective: Awake, sitting at side of bed,no distress Reason for consultation and follow up: Cardiac evaluation to rule out endocarditis, admitted for swelling of neck. heroin abuse Seen and examined by me and Dr. Garrido Objective - Vital Signs/Intake and Output Vital Signs (last 24 hours): Temp Pulse Resp BP Pulse Ox 98.1 F 85 22 102/56 L 98 04/04/18 06:00 04/04/18 06:00 04/04/18 06:00 04/04/18 06:00 04/04/18 06:00 Intake and Output: 04/04/18 04/04/18 06:59 18:59 Intake Total 980 Balance 980 - Medications Medications: Current Medications Acetaminophen (Tylenol 325mg Tab) 650 mg PO Q6H PRN PRN Reason: Fever >100.4 F Last Admin: 04/02/18 22:43 Dose: 650 mg Alprazolam (Xanax) 1 mg PO TID PRN; Protocol PRN Reason: Anxiety Last Admin: 04/04/18 05:48 Dose: 1 mg Aspirin (Aspirin Chewable) 81 mg PO DAILY [facility] Last Admin: 04/03/18 20:29 Dose: 81 mg Enoxaparin Sodium (Lovenox) 40 mg SC DAILY [facility]; Protocol Last Admin: 04/03/18 09:27 Dose: 40 mg Gabapentin (Neurontin) 100 mg PO TID [facility]; Protocol Last Admin: 04/03/18 18:15 Dose: 100 mg Home Med (Home Med) 1 unit SL TID PRN PRN Reason: drug craving Last Admin: 04/04/18 05:48 Dose: 1 unit Piperacillin Sod/Tazobactam Sod (Zosyn 3.375 In Ns 100ml) 100 mls @ 25 mls/hr IVPB Q8 [facility]; Protocol Stop: 04/10/18 06:01 Last Admin: 04/04/18 05:26 Dose: 25 mls/hr Nafcillin Sodium 2 gm/ (Dextrose) 100 mls @ 100 mls/hr IVPB Q4 [facility]; Protocol Last Admin: 04/04/18 05:00 Dose: 100 mls/hr Ketorolac Tromethamine (Toradol) 30 mg IVP Q6 PRN PRN Reason: Pain, moderate (4-7) Stop: 04/04/18 14:00 Last Admin: 04/02/18 22:42 Dose: 30 mg Losartan Potassium (Cozaar) 100 mg PO DAILY [facility] Last Admin: 04/03/18 09:33 Dose: 100 mg Metformin HCl (Glucophage) 850 mg PO BID [facility] Last Admin: 04/03/18 18:14 Dose: 850 mg Mirtazapine (Remeron) 15 mg PO HS [facility] Last Admin: 04/03/18 22:10 Dose: 15 mg Nicotine (Nicoderm Cq) 1 patch TD DAILY [facility] Last Admin: 04/03/18 09:27 Dose: 1 patch Pantoprazole Sodium (Protonix Inj) 40 mg IVP DAILY [facility] Last Admin: 04/03/18 09:27 Dose: 40 mg - Labs Labs: 03/31/18 19:30 03/31/18 19:30 - Constitutional Appears: Non-toxic, No Acute Distress - Head Exam Head Exam: NORMAL INSPECTION, NORMOCEPHALIC - ENT Exam ENT Exam: Mucous Membranes Moist, Normal Exam Additional comments: neck swelling on the right side, tender to touch - Respiratory Exam Respiratory Exam: Decreased Breath Sounds, Clear to Ausculation Bilateral, NORMAL BREATHING PATTERN - Cardiovascular Exam Cardiovascular Exam: REGULAR RHYTHM, +S1, +S2 Additional comments: telemetry NSR 70-80's - GI/Abdominal Exam GI & Abdominal Exam: Soft, Normal Bowel Sounds - Extremities Exam Extremities Exam: Full ROM, Normal Capillary Refill - Neurological Exam Neurological Exam: Alert, Awake, Oriented x3 - Psychiatric Exam Psychiatric exam: Normal Affect, Normal Mood - Skin Skin Exam: Dry, Normal Color, Warm Assessment and Plan - Assessment and Plan (Free Text) Assessment: A 42 year old female who came in to the [facility] for evaluation of right side neck swelling. She was evaluated at [facility]. CT of neck was done and a mass was noted. Referred to [facility] for further evaluation. History of Heroin abuse (IVDA). Her last heroin injection was last week. History of COPD,depression, obesity and current smoker. Denies chest pain or shortness of breath. Consult was called to rule out endocarditis. CT of chest done, heterogenous apperance of the right IJ vein worrisome for thrombus, soft tissue swelling. Ultrasound of right neck soft tissue-multiple soft tissue nodules likely represent mildly enlarged lymph nodes. EKG- normal sinus rhythm, no ischemia. Troponin normal. Blood cultures x 2 sets preliminary report positive for gram positive cocci . No cardiac work up done at [facility]. Plan: Echo to evaluate LV function and vegetations, will follow up result Blood cultures x 2 sets preliminary report positive for gram positive cocci Heart rate stable Blood pressure stable Continue IV antibiotics per ID Continue current treatment Continue current medications Further recommendations during hospital course Will follow up Plan and treatment discussed with Dr. Garrido
[2018-04-04] MEDS: Enoxaparin 40 mg Syringe SC SCH (09:06)
--- NOTE | 2018-04-04 09:15 | PN ---
DATE: 04/02/2018 SUBJECTIVE: A 42-year-old female who has fever today. She is alert, awake and oriented x3. about heroin bags in the patient's room has been taken by the police. The patient advised not to take anything, it would be very dangerous for her, not helping her treatment plan. However, patient seems otherwise stable. No new complaints, except sometimes she complained of back pain. No chest pain. No shortness of breath. PHYSICAL EXAMINATION: VITAL SIGNS: Temperature 103, heart rate 96, blood pressure 146/78, respirations 20 and saturation 94% on room air. HEAD AND NECK: Normal. No JVD. No thyromegaly. CHEST: Clear bilaterally. CARDIAC: First sound and second sound normal. No murmur, rub or gallop. ABDOMEN: Soft and nontender. Obese. EXTREMITIES: No edema. There is IV line in right groin area, some thorne and cellulitis on the right antecubital fossa mass. NEUROLOGIC: Normal. She moves all extremities. She is alert, awake and oriented x3. LABORATORY DATA: Her blood sugar runs 150. Hemoglobin A1c was 7.1. The patient is otherwise stable. She does have a blood culture which shows Gram-positive cocci and Staphylococcus aureus also has grown up and has been to Dr. Espinoza to take care of this. IMPRESSION AND PLAN: 1. Endocarditis. We will get an echocardiogram, probably she will need a transesophageal echo, continue right now IV antibiotics, daptomycin was placed and on Zosyn. We will continue to follow up with ID consultation and his recommendations. Continue current IV treatment. Echo done, no report yet . 2. IV heroin use. The patient has drug use disorder. We will give her , however, the patient would need more treatment. Continue Remeron, Neurontin and we will follow up clinically. 3. Tobacco abuse, continue Nicoderm. 4. Diabetes, hypertension. Continue insulin coverage. 5. Continue gastrointestinal and deep venous thrombosis prophylaxis. 6. Chronic anxiety being on Xanax. We do not know whether this is Xanax, she is probably addicted to it or has been using it for and anxiety, it is difficult to know. We will get Psychiatry to follow up on that. Continue current therapy, follow up clinically. Dom Steele MD
[2018-04-04 10:05] LABS: HEMOGLOBIN 10.5 g/dL (12.0-16.0); MEAN CELL VOLUME 89.6 fl (80.0-105.0); MEAN CORPUSCULAR HEMOGLOBIN 29.5 pg (25.0-35.0); MEAN CORPUSCULAR HGB CONC 32.9 g/dl (31.0-37.0); MEAN PLATELET VOLUME 10.5 fl (7.0-11.0); RBC 3.56 10^6/uL (3.5-6.1); RED CELL DISTRIBUTION WIDTH 13.9 % (11.5-14.5); WHITE BLOOD COUNT 8.9 10^3/uL (4.5-11.0)
--- NOTE | 2018-04-04 10:12 | CP.PCM.PN ---
<Hieu Ozuna - Last Filed: 04/04/18 10:07> Subjective - Date & Time of Evaluation Date of Evaluation: 04/04/18 Time of Evaluation: 09:00 - Subjective Subjective: ID Progress Note Patient seen and examined. Patient states she feels better than yesterday. No fevers overnight. Denies chest pain, shortness of breath, nausea, vomiting, diarrhea. Objective - Vital Signs/Intake and Output Vital Signs (last 24 hours): Temp Pulse Resp BP Pulse Ox 98.1 F 77 22 106/54 L 98 04/04/18 06:00 04/04/18 09:05 04/04/18 06:00 04/04/18 09:05 04/04/18 06:00 Intake and Output: 04/04/18 04/04/18 06:59 18:59 Intake Total 980 Balance 980 - Medications Medications: Current Medications Acetaminophen (Tylenol 325mg Tab) 650 mg PO Q6H PRN PRN Reason: Fever >100.4 F Last Admin: 04/02/18 22:43 Dose: 650 mg Alprazolam (Xanax) 1 mg PO TID PRN; Protocol PRN Reason: Anxiety Last Admin: 04/04/18 05:48 Dose: 1 mg Aspirin (Aspirin Chewable) 81 mg PO DAILY [facility] Last Admin: 04/04/18 09:06 Dose: 81 mg Enoxaparin Sodium (Lovenox) 40 mg SC DAILY [facility]; Protocol Last Admin: 04/04/18 09:06 Dose: 40 mg Gabapentin (Neurontin) 100 mg PO TID [facility]; Protocol Last Admin: 04/04/18 09:07 Dose: 100 mg Home Med (Home Med) 1 unit SL TID PRN PRN Reason: drug craving Last Admin: 04/04/18 05:48 Dose: 1 unit Piperacillin Sod/Tazobactam Sod (Zosyn 3.375 In Ns 100ml) 100 mls @ 25 mls/hr IVPB Q8 [facility]; Protocol Stop: 04/10/18 06:01 Last Admin: 04/04/18 05:26 Dose: 25 mls/hr Nafcillin Sodium 2 gm/ (Dextrose) 100 mls @ 100 mls/hr IVPB Q4 [facility]; Protocol Last Admin: 04/04/18 09:52 Dose: 100 mls/hr Ketorolac Tromethamine (Toradol) 30 mg IVP Q6 PRN PRN Reason: Pain, moderate (4-7) Stop: 04/04/18 14:00 Last Admin: 04/04/18 09:55 Dose: 30 mg Losartan Potassium (Cozaar) 50 mg PO DAILY [facility] Last Admin: 04/04/18 09:05 Dose: 50 mg Metformin HCl (Glucophage) 850 mg PO BID [facility] Last Admin: 04/04/18 09:07 Dose: 850 mg Mirtazapine (Remeron) 15 mg PO HS [facility] Last Admin: 04/03/18 22:10 Dose: 15 mg Nicotine (Nicoderm Cq) 1 patch TD DAILY [facility] Last Admin: 04/04/18 09:07 Dose: 1 patch Pantoprazole Sodium (Protonix Inj) 40 mg IVP DAILY [facility] Last Admin: 04/04/18 09:07 Dose: 40 mg - Labs Labs: 04/04/18 09:50 03/31/18 19:30 - Constitutional Appears: Non-toxic, No Acute Distress - Head Exam Head Exam: ATRAUMATIC, NORMAL INSPECTION, NORMOCEPHALIC - ENT Exam ENT Exam: Mucous Membranes Moist - Respiratory Exam Respiratory Exam: Clear to Ausculation Bilateral, NORMAL BREATHING PATTERN. absent: Rales, Rhonchi, Wheezes - Cardiovascular Exam Cardiovascular Exam: RRR, +S1, +S2 - GI/Abdominal Exam GI & Abdominal Exam: Soft, Normal Bowel Sounds. absent: Tenderness - Extremities Exam Extremities Exam: absent: Pedal Edema - Neurological Exam Neurological Exam: Alert, Awake, Oriented x3 - Psychiatric Exam Psychiatric exam: Anxious - Skin Skin Exam: Erythema (Right neck and upper right chest. Tender to palpation ), Intact, Warm Assessment and Plan - Assessment and Plan (Free Text) Plan: Sepsis secondary to MSSA bacteremia with right neck and chest cellulitis R/O endocarditis Hx of IVDA with Heroin Morbid Obesity BMI 47 Continue on Nafcillin and Zosyn Blood cultures remain positive, recent cultures show gram + cocci Echocardiogram read pending HIV negative Will continue to monitor Bhagwandin, PGY-3 <Stanford Duran - Last Filed: 04/04/18 14:04> Objective - Vital Signs/Intake and Output Vital Signs (last 24 hours): Temp Pulse Resp BP Pulse Ox 97.1 F L 69 19 94/52 L 98 12/17/18 12:00 04/04/18 12:00 04/04/18 12:00 04/04/18 12:00 04/04/18 06:00 Intake and Output: 04/04/18 04/04/18 06:59 18:59 Intake Total 980 Balance 980 - Medications Medications: Current Medications Acetaminophen (Tylenol 325mg Tab) 650 mg PO Q6H PRN PRN Reason: Fever >100.4 F Last Admin: 04/02/18 22:43 Dose: 650 mg Alprazolam (Xanax) 1 mg PO TID PRN; Protocol PRN Reason: Anxiety Last Admin: 04/04/18 05:48 Dose: 1 mg Aspirin (Aspirin Chewable) 81 mg PO DAILY [facility] Last Admin: 04/04/18 09:06 Dose: 81 mg Enoxaparin Sodium (Lovenox) 40 mg SC DAILY [facility]; Protocol Last Admin: 04/04/18 09:06 Dose: 40 mg Gabapentin (Neurontin) 100 mg PO TID [facility]; Protocol Last Admin: 04/04/18 09:07 Dose: 100 mg Home Med (Home Med) 1 unit SL TID PRN PRN Reason: drug craving Last Admin: 04/04/18 05:48 Dose: 1 unit Nafcillin Sodium 2 gm/ (Dextrose) 100 mls @ 100 mls/hr IVPB Q4 [facility]; Protocol Last Admin: 04/04/18 13:09 Dose: 100 mls/hr Losartan Potassium (Cozaar) 50 mg PO DAILY [facility] Last Admin: 04/04/18 09:05 Dose: 50 mg Metformin HCl (Glucophage) 850 mg PO BID [facility] Last Admin: 04/04/18 09:07 Dose: 850 mg Mirtazapine (Remeron) 15 mg PO HS [facility] Last Admin: 04/03/18 22:10 Dose: 15 mg Nicotine (Nicoderm Cq) 1 patch TD DAILY [facility] Last Admin: 04/04/18 09:07 Dose: 1 patch Pantoprazole Sodium (Protonix Inj) 40 mg IVP DAILY [facility] Last Admin: 04/04/18 09:07 Dose: 40 mg - Labs Labs: 04/04/18 09:50 04/04/18 09:50 Assessment and Plan - Assessment and Plan (Free Text) Plan: Infectious diseases Attending Physician Attestation Patient seen and examined, discussed with medical technical writer. I have reviewed the patient's history of present illness, past medical, social, personal and family histories, pertinent physical exam findings, course so far in this hospital admission, pertinent laboratory and imaging results. I agree with the above findings, assessment and plan. In addition, will continue Nafcillin for sepsis due to MSSA bacteremia with right chest and neck skin and skin structure infection with probable septic thrombophlebitis of right internal jugular vein, R/O endocarditis. Follow up repeat blood cx and 2D echo. Will need a nticoagulation. Follow surgery evaluation. Discussed with Dr. Steele.
[2018-04-04 10:21] LABS: ALB/GLOB RATIO 0.9 (1.1-1.8); ALBUMIN 3.1 g/dL (3.0-4.8); ALT/SGPT 36 U/L (7-56); AST/SGOT 43 U/L (14-36); BLOOD UREA NITROGEN 19 mg/dL (7-21); CALCIUM 8.4 mg/dL (8.4-10.5); GFR NON-AFRICAN AMERICAN > 60
--- NOTE | 2018-04-04 11:36 | CT ---
Date of service: 04/03/2018 PROCEDURE: CT HEAD WITHOUT CONTRAST. HISTORY: hallucinations COMPARISON: None available. TECHNIQUE: Axial computed tomography images were obtained through the head/brain without intravenous contrast. Radiation dose: Total exam DLP = 1001.9 mGy-cm. This CT exam was performed using one or more of the following dose reduction techniques: Automated exposure control, adjustment of the mA and/or kV according to patient size, and/or use of iterative reconstruction technique. FINDINGS: HEMORRHAGE: No intracranial hemorrhage. BRAIN: Normal corral-white matter differentiation and density are appreciated throughout the cerebrum and cerebellum with the brainstem appearing unremarkable as well. There is no mass effect. There is no suspicious extra-axial fluid collection and the midline brain anatomy appears diffusely unremarkable. VENTRICLES: Unremarkable. No hydrocephalus. CALVARIUM: Unremarkable. PARANASAL SINUSES: Unremarkable as visualized. No significant inflammatory changes. MASTOID AIR CELLS: Unremarkable as visualized. No inflammatory changes. OTHER FINDINGS: None. IMPRESSION: Unremarkable unenhanced CT of the Head. Concordant preliminary report from [facility], 04/03/2018 11:03 p.m..
--- NOTE | 2018-04-04 12:30 | CARD ---
APPROVED REPORT Date of service: 04/02/2018 EXAM: Two-dimensional and M-mode echocardiogram with Doppler and color Doppler. INDICATION R/O ENDOCARDITIS, DRUG ABUSE 2D DIMENSIONS IVSd1.1 (0.7-1.1cm)LVDd4.6 (3.9-5.9cm) PWd1.2 (0.7-1.1cm)LVDs2.9 (2.5-4.0cm) FS (%) 37.2 %LVEF (%)67.2 (>50%) M-Mode DIMENSIONS Left Atrium (MM)3.30 (2.5-4.0cm)Aortic Root3.20 (2.2-3.7cm) Aortic Cusp Exc.2.00 (1.5-2.0cm) Aortic Valve AoV Peak Xloutbve219.0cm/Karuna Peak GR.15mmHg Mitral Valve MV E Cwibzdmi675.0cm/sMV A Mawgtqux89.2cm/sE/A ratio2.0 TDI Lateral E' Peak V7.02cm/sMedial E' Peak V9.65cm/sE/Lateral E'17.1 E/Medial E'12.4 Tricuspid Valve TR Peak Hhfhxksk127wo/sRAP [id number] Peak Gr.30mmHg [id number] LEFT VENTRICLE The left ventricle is normal size. There is borderline concentric left ventricular hypertrophy. Proximal septal thickening is noted. The left ventricular function is normal.EF-65% There is normal LV segmental wall motion. The left ventricular diastolic function is normal. No left ventricle thrombus noted on this study. There is no ventricular septal defect visualized. There is no left ventricular aneurysm. There is no mass noted in the left ventricle. RIGHT VENTRICLE The right ventricle is normal size. There is normal right ventricular wall thickness. The right ventricular systolic function is normal. ATRIA The left atrium size is normal. The right atrium size is normal. The interatrial septum is intact with no evidence for an atrial septal defect. AORTIC VALVE The aortic valve is thickened but opens well. There is trace aortic regurgitation. There is no aortic valvular stenosis. There is no aortic valvular vegetation. MITRAL VALVE The mitral valve is thickened but opens well. Mitral regurgitation is trace. There is no mitral valve stenosis. There is no evidence of mitral valve prolapse. TRICUSPID VALVE The tricuspid valve leaflets are thickened , but open well. There is mild tricuspid regurgitation.RVSP-40 mm of Hg/ There is no tricuspid valve stenosis. There is no tricuspid valve prolapse or vegetation. PULMONIC VALVE The pulmonary valve is normal in structure. There is no pulmonic valvular regurgitation. There is no pulmonic valvular stenosis. GREAT VESSELS The aortic root is normal in size. The ascending aorta is normal in size. The pulmonary artery is normal. The IVC is normal in size and collapses >50% with inspiration. PERICARDIAL EFFUSION There is no pleural effusion. There is no pericardial effusion. <Conclusion> Normal chamber Size. EF-65% trace MR/AR Mild TR, RVSP-40 mmof hg. No Vegetation or thrombus noted.
--- NOTE | 2018-04-04 13:54 | CP.PCM.CON ---
History of Present Illness - History of Present Illness History of Present Illness: Patient is a 42 yo female with history of HTN, T2DM, and IV heroin use who presented with R neck and arm swelling. Patient was initially evaluated at a free-standing ED and advised to come to the hospital to be admitted. Patient states that her R neck began to hurt and swell approximately 4 weeks ago. She did not do anything to relieve the pain or swelling and it gradually got worse to the point where she could barely move her R arm. She has an abscess on her R antecubital fossa that patient states started draining last Wednesday before she was seen by a physician. Patient admits to IV injection of heroin in both arms, hands, and feet. Denies injection in her neck. She reports her last use was one month ago, but she tells different stories to different providers regarding her drug use. On 04/02, patient was found with bags of white powder in her hospital room; advertising writer were called and confiscated the bags. Patient reports feeling feverish. Denies issues with swallowing, chewing, talking, or breathing. She denies chest pain, SOB, abdominal pain, N/V/C/D. PMH: T2DM, HTN (of note, patient denied knowing she had these dx until this admission) Meds: Patient states that she only takes Xanax at home Current meds: Nafcillin 2 g IV Q4H (started 04/03), heparin drip, ASA 81 mg PO daily, Suboxone 8/2 mg film TID PRN, Xanax 1 mg PO TID PRN, gabapentin 100 mg PO TID, Losartan 50 mg PO daily, metformin 850 mg PO BID, Remeron 15 mg PO QHS, Tylenol 650 mg PO Q6H PRN, Protonix 40 mg IV daily, Nicoderm All: NKA FH: Father (68)- living, recent [place] Mother- breast CA Sister- lymphoma SH: Lives with sister and 2 sons Unemployed Denies alcohol use Smokes 1.5 ppd x 16 yrs IV heroin x yrs PMD: none Psych: Aftel Review of Systems - Constitutional Constitutional: Fever - EENT Eyes: absent: Change in Vision Ears: absent: Decreased Hearing Nose/Mouth/Throat: As Per HPI, Neck Pain. absent: Nasal Congestion, Sinus Pain, Dysphagia, Hoarsness, Mouth Pain, Odynophagia, Sore Throat, Throat Swelling, Tongue Swelling, Facial Pain, Neck Mass - Cardiovascular Cardiovascular: Edema (RUE, neck). absent: Chest Pain, Dyspnea, Palpitations - Respiratory Respiratory: absent: Cough, Dyspnea - Gastrointestinal Gastrointestinal: absent: Abdominal Pain, Constipation, Diarrhea, Nausea, Vomiting - Genitourinary Genitourinary: absent: Dysuria, Hematuria - Musculoskeletal Musculoskeletal: As Per HPI, Joint Swelling (RUE). absent: Numbness, Tingling - Integumentary Integumentary: As Per HPI, Lesions (antecubital fossa), Sores (multiple scabs on hands, feet, legs) - Neurological Neurological: absent: Dizziness, Numbness, Focal Weakness, Headaches, Tingling - Psychiatric Psychiatric: Anxiety - Endocrine Endocrine: absent: Palpitations - Hematologic/Lymphatic Hematologic: absent: Easy Bleeding, Easy Bruising, Lymphadenopathy Past Patient History - Infectious Disease Hx of Infectious Diseases: None - Tetanus Immunizations Tetanus Immunization: Unknown - Past Medical History & Family History Past Medical History?: Yes Pertinent Family History: mother- breast CA sister- lymphoma - Past Social History Smoking Status: Heavy Smoker > 10 Cigarettes Daily Chewing Tobacco Use: No Cigar Use: No Alcohol: None Drugs: Opiates (IV heroin) Home Situation {Lives}: With Family (sister, 2 sons) - CARDIAC Hx Cardiac Disorders: Yes Hx Hypertension: Yes - PULMONARY Hx Respiratory Disorders: No - NEUROLOGICAL Hx Neurological Disorder: No - HEENT Hx HEENT Problems: No - RENAL Hx Chronic Kidney Disease: No - ENDOCRINE/METABOLIC Hx Endocrine Disorders: No - HEMATOLOGICAL/ONCOLOGICAL Hx Blood Disorders: No - INTEGUMENTARY Hx Dermatological Problems: No - MUSCULOSKELETAL/RHEUMATOLOGICAL Hx Musculoskeletal Disorders: No - GASTROINTESTINAL Hx Gastrointestinal Disorders: No - GENITOURINARY/GYNECOLOGICAL Hx Genitourinary Disorders: No - PSYCHIATRIC Hx Psychophysiologic Disorder: No Hx Substance Use: No - SURGICAL HISTORY Hx Tonsillectomy: Yes Meds Allergies/Adverse Reactions: Allergies Allergy/AdvReac Type Severity Reaction Status Date / Time No Known Allergies Allergy Verified 03/31/18 17:31 - Medications Medications: Current Medications Acetaminophen (Tylenol 325mg Tab) 650 mg PO Q6H PRN PRN Reason: Fever >100.4 F Last Admin: 04/02/18 22:43 Dose: 650 mg Alprazolam (Xanax) 1 mg PO TID PRN; Protocol PRN Reason: Anxiety Last Admin: 04/04/18 05:48 Dose: 1 mg Aspirin (Aspirin Chewable) 81 mg PO DAILY [facility] Last Admin: 04/04/18 09:06 Dose: 81 mg Enoxaparin Sodium (Lovenox) 40 mg SC DAILY [facility]; Protocol Last Admin: 04/04/18 09:06 Dose: 40 mg Gabapentin (Neurontin) 100 mg PO TID [facility]; Protocol Last Admin: 04/04/18 09:07 Dose: 100 mg Home Med (Home Med) 1 unit SL TID PRN PRN Reason: drug craving Last Admin: 04/04/18 05:48 Dose: 1 unit Nafcillin Sodium 2 gm/ (Dextrose) 100 mls @ 100 mls/hr IVPB Q4 [facility]; Protocol Last Admin: 04/04/18 13:09 Dose: 100 mls/hr Ketorolac Tromethamine (Toradol) 30 mg IVP Q6 PRN PRN Reason: Pain, moderate (4-7) Stop: 04/04/18 14:00 Last Admin: 04/04/18 09:55 Dose: 30 mg Losartan Potassium (Cozaar) 50 mg PO DAILY [facility] Last Admin: 04/04/18 09:05 Dose: 50 mg Metformin HCl (Glucophage) 850 mg PO BID [facility] Last Admin: 04/04/18 09:07 Dose: 850 mg Mirtazapine (Remeron) 15 mg PO HS [facility] Last Admin: 04/03/18 22:10 Dose: 15 mg Nicotine (Nicoderm Cq) 1 patch TD DAILY [facility] Last Admin: 04/04/18 09:07 Dose: 1 patch Pantoprazole Sodium (Protonix Inj) 40 mg IVP DAILY [facility] Last Admin: 04/04/18 09:07 Dose: 40 mg Physical Exam - Constitutional Appears: No Acute Distress - Head Exam Head Exam: ATRAUMATIC, NORMAL INSPECTION - Eye Exam Eye Exam: EOMI, Normal appearance, PERRL - ENT Exam ENT Exam: Mucous Membranes Moist - Neck Exam Neck exam: Positive for: Lymphadenopathy, Tenderness Additional comments: R-sided erythema, edema, firmness extending to approx 4 cm below the R clavicle, no crepitus or fluctuance no lesions observed - Respiratory Exam Respiratory Exam: Clear to Auscultation Bilateral, NORMAL BREATHING PATTERN. absent: Respiratory Distress - Cardiovascular Exam Cardiovascular Exam: REGULAR RHYTHM, +S1, +S2 - GI/Abdominal Exam GI & Abdominal Exam: Soft. absent: Tenderness Additional comments: obese - Rectal Exam Rectal Exam: Deferred - Extremities Exam Extremities exam: Positive for: joint swelling (RUE), tenderness (RUE). Negative for: calf tenderness Additional comments: RUE nonpitting edema, tender, neurovascularly intact draining abscess on R antecubital fossa multiple eschars on hands, feet, legs - Neurological Exam Neurological exam: Alert, CN II-XII Intact, Oriented x3 - Psychiatric Exam Psychiatric exam: Normal Affect, Normal Mood - Skin Skin Exam: Dry, Normal Color, Warm Additional comments: except as noted above Results - Vital Signs Recent Vital Signs: Last Vital Signs Temp 97.1 F L 04/04/18 12:00 Pulse 69 04/04/18 12:00 Resp 19 04/04/18 12:00 BP 94/52 L 04/04/18 12:00 Pulse Ox 98 04/04/18 06:00 - Labs Result Diagrams: 04/04/18 09:50 04/04/18 09:50 Labs: Laboratory Results - last 24 hr 04/03/18 04/03/18 04/04/18 11:17 15:56 02:00 WBC RBC Hgb Hct MCV MCH MCHC RDW Plt Count MPV Sodium Potassium Chloride Carbon Dioxide Anion Gap BUN Creatinine Est GFR ( Amer) Est GFR (Non-Af Amer) POC Glucose (mg/dL) 125 H 85 93 Random Glucose Calcium Total Bilirubin AST ALT Alkaline Phosphatase Total Protein Albumin Globulin Albumin/Globulin Ratio 04/04/18 04/04/18 04/04/18 07:29 09:50 09:50 WBC 8.9 D RBC 3.56 Hgb 10.5 L Hct 31.9 L MCV 89.6 MCH 29.5 MCHC 32.9 RDW 13.9 Plt Count 187 MPV 10.5 Sodium 138 Potassium 3.5 L Chloride 107 Carbon Dioxide 21 Anion Gap 13 BUN 19 Creatinine 1.0 Est GFR ( Amer) > 60 Est GFR (Non-Af Amer) > 60 POC Glucose (mg/dL) 87 Random Glucose 83 Calcium 8.4 Total Bilirubin 0.8 AST 43 H D ALT 36 Alkaline Phosphatase 173 H D Total Protein 6.6 Albumin 3.1 Globulin 3.5 Albumin/Globulin Ratio 0.9 L - Imaging and Cardiology CT scan - chest Status: Image reviewed by me, Report reviewed by me Venous US Status: Image reviewed by me, Report reviewed by me CT scan - head Status: Image reviewed by me, Report reviewed by me Assessment & Plan - Assessment and Plan (Free Text) Assessment: 42F IV drug user with Staph aureus bacteremia, R antecubital fossa draining abscess, RUE DVT, and infraclavicular abscess Plan: - Afebrile since 04/02, no leukocytosis - Imaging indicative of deep abscess vs mass in the right supraclavicular area extending behind the clavicle infraclavicularly. D/T deep location and proximity to vital structures, it is not easily accessible. Recommend IR evaluation for drainage, or possibly cardiothoracic surgical consult if inaccessible by IR. - No surgical intervention for the right antecubital abscess--it is freely draining at this time with no signs of retained infection - Continue antibiotics as per ID - PRN pain medication - Agree with heparin for thrombus Case was discussed with attending, Dr. Galan, who agrees with above. PGY-1 Veronica Noel D.O.
[2018-04-04] MEDS: Heparin25000 units/250ml 1/2NS 25,000 UNITS/250 ML BAG IV PRN (14:31)
--- NOTE | 2018-04-04 14:43 | CON ---
DATE: 04/04/2018 CHIEF COMPLAINT: Hallucinations. HISTORY OF PRESENT ILLNESS: This is a 42-year-old woman with history of IV drug abuse of heroin, history of COPD, depression, anxiety, and current smoker. Found to have a soft tissue swelling, foci of gas within abscess, has been evaluated for some right leg and lower leg cellulitis, was consulted because she was hallucinating overnight. The patient has a history of IV drug abuse. Her last injection was last week. Her U-tox was positive for opiates, indicating that she is possibly having no heroin withdrawal syndrome. Currently, the patient is oriented x3, following commands, moving all extremities, has much of injection track thorne in her extremities. She has gram-positive cocci in her blood cultures and an echocardiogram has been done to evaluate for any vegetations of her heart. She is on antibiotics as per ID, moving all extremities. No focal weakness on her extremities. ALLERGIES: NO KNOWN DRUG ALLERGIES. MEDICATIONS: Reviewed by nurse's reconciliation sheet. SOCIAL HISTORY: IV drug abuse of heroin, occasional alcohol abuse, and smoker daily. FAMILY HISTORY: Noncontributory. LABORATORY DATA: Sodium is 138, potassium 3.5, chloride 107, carbon dioxide 21, BUN of 19, creatinine of 1, . PHYSICAL EXAMINATION GENERAL: The patient is seen in bed and in no acute distress. VITAL SIGNS: Temperature of 97.5, pulse rate is 69, blood pressure of 194/42, respiratory rate 19, and oxygen saturation 98% on room air HEENT: Atraumatic and normocephalic. PERRLA. Extraocular muscles intact. NECK: Supple. No JVD. No adenopathy noted. LUNGS: Clear to auscultation. No adventitious sounds. HEART: S1 and S2. Normal rate and rhythm. No murmurs, rubs or gallops. ABDOMEN: Soft, nontender, and nondistended. Bowel sounds present. EXTREMITIES: No clubbing and no cyanosis. Peripheral pulses are 2+ felt bilaterally. NECK: On her neck, there is some neck swelling on the right side, tender to touch. NEUROLOGICAL: The patient is alert and oriented to person, place, month and year. Speech is without errors. Cranial nerves II through XII intact. Motor: Moves all extremities without any difficulties. Sensory: decreased light touch, pinprick, proprioception and vibration are intact. DTRs 2+ throughout, 1 in both knees and ankles. Coordination: [id number] is intact. No dysmetria noted. Gait is deferred for now. IMPRESSION: Transient hallucinations secondary to transient delirium for underline likely intravenous heroin withdrawal. Again, that she is avid intravenous heroin abuser in the past. Possibly, this is aspect of delirium as well. Currently, she is back to her baseline. RECOMMENDATIONS: At this time, I recommend; 1. Keep her blood pressures between 120's to 130's systolic and diastolic 70's and 80's as she was hypertensive. 2. Continue with antibiotics treatment for gram-positive cocci and need for echocardiogram, do not need for any vegetation for endocarditis. 3. A psychiatric consult in order to equal opportunity counselor us intravenous drug cessation and also for underlying anxiety and depression. At this time, continue current present medical management. Thank you for this consult. Don Nunez MD
--- NOTE | 2018-04-04 14:51 | PN ---
DATE: 04/04/2018 REASON FOR CONSULTATION AND FOLLOWUP: Cardiac evaluation, rule out endocarditis, admitted with a swelling of the neck, and active substance abuse. Last use of intravenous 4 weeks ago. Admitted with sepsis, still blood culture is positive, echo reviewed, no evidence of endocarditis, preserved LV function ejection fraction 65% trace MR, trace AR, mild tricuspid regurgitation, RV systolic pressure of 40. No evidence of endocarditis. Recommends to continue to broad spectrum antibiotics. If the blood culture remains positive, we will consider CABRERA. We will follow with you. We will keep n.p.o. after Wednesday midnight for RTE on Wednesday. Thank you Dr. Steele for providing us the opportunity to take in care of the patient, Brigido Menendez. Pattie Garrido MD
--- NOTE | 2018-04-04 16:55 | PN ---
DATE: 04/04/2018 Chart reviewed and case discussed with the nursing. SUBJECTIVE: The patient is a 42-year-old white female, who is being evaluated for possible endocarditis. The events over the weekend have been reviewed. The patient is receiving Suboxone. She is reported to be more alert. A CT scan of her head without contrast yesterday was unremarkable. We will continue to monitor. Joshua Hawkins MD/ PhD
[2018-04-04 17:10] LABS: HEPATITIS B SURFACE AG Negative (NEGATIVE)
[2018-04-04 17:17] LABS: HEPATITIS A IGM NEGATIVE (NEGATIVE); HEPATITIS B CORE AB NEGATIVE (NEGATIVE)
--- NOTE | 2018-04-04 19:57 | US ---
HISTORY: Arm pain and swelling. Evaluate for deep venous thrombosis. PHYSICIAN(S): Saulo Aden MD. FINDINGS: There is acute hypoechoic occlusive thrombus noted in the right internal jugular vein and right subclavian vein. This is likely related to the inflammatory process in the right neck. There is no sonographic evidence for deep venous thrombosis on the left IMPRESSION: 1. Acute occlusive thrombus in the right internal jugular vein and visualized right subclavian vein
[2018-04-05] MEDS: Heparin25000 units/250ml 1/2NS 25,000 UNITS/250 ML BAG IV PRN (06:11)
--- NOTE | 2018-04-05 08:15 | CP.PCM.PN ---
Subjective - Date & Time of Evaluation Date of Evaluation: 04/05/18 Time of Evaluation: 07:12 - Subjective Subjective: Surgery progress note for Dr. Galan's service: Patient was seen and examined this morning. She states she feels about the same with pain of her R neck and chest. Denies trouble breathing or swalloingw. Denies fevers/chills for last 24 hours. She reports having a decreased appetite. NPO for CABRERA today. Denies chest pain, SOB, abdominal pain, N/V/C/D. Objective - Vital Signs/Intake and Output Vital Signs (last 24 hours): Temp Pulse Resp BP Pulse Ox 99.2 F 78 19 106/55 L 96 04/05/18 06:00 04/05/18 06:00 04/05/18 06:00 04/05/18 06:00 04/05/18 06:00 Intake and Output: 04/05/18 04/05/18 06:59 18:59 Intake Total 997 Balance 997 - Medications Medications: Current Medications Acetaminophen (Tylenol 325mg Tab) 650 mg PO Q6H PRN PRN Reason: Fever >100.4 F Last Admin: 04/04/18 22:55 Dose: 650 mg Alprazolam (Xanax) 1 mg PO TID PRN; Protocol PRN Reason: Anxiety Last Admin: 04/04/18 21:09 Dose: 1 mg Aspirin (Aspirin Chewable) 81 mg PO DAILY [facility] Last Admin: 04/04/18 09:06 Dose: 81 mg Gabapentin (Neurontin) 100 mg PO TID [facility]; Protocol Last Admin: 04/04/18 17:35 Dose: 100 mg Home Med (Home Med) 1 unit SL TID PRN PRN Reason: drug craving Last Admin: 04/04/18 05:48 Dose: 1 unit Nafcillin Sodium 2 gm/ (Dextrose) 100 mls @ 100 mls/hr IVPB Q4 [facility]; Protocol Last Admin: 04/05/18 04:10 Dose: 100 mls/hr Heparin Sodium/Sodium Chloride (Heparin 51758 Units/250ml 1/2 Normal Saline) 25,000 units in 250 mls @ 21.4 mls/hr IV .[id number] PRN; Protocol PRN Reason: ADJUST RATE PER PROTOCOL Last Admin: 04/05/18 06:11 Dose: 12 units/kg/hr, 14.266 mls/hr Losartan Potassium (Cozaar) 50 mg PO DAILY [facility] Last Admin: 04/04/18 09:05 Dose: 50 mg Metformin HCl (Glucophage) 850 mg PO BID [facility] Last Admin: 04/04/18 17:35 Dose: 850 mg Mirtazapine (Remeron) 15 mg PO HS [facility] Last Admin: 04/04/18 22:29 Dose: 15 mg Nicotine (Nicoderm Cq) 1 patch TD DAILY [facility] Last Admin: 04/04/18 09:07 Dose: 1 patch Pantoprazole Sodium (Protonix Inj) 40 mg IVP DAILY [facility] Last Admin: 04/04/18 09:07 Dose: 40 mg - Labs Labs: 04/04/18 09:50 04/04/18 09:50 APTT 97.1 Seconds (25.1-36.5) H 04/05/18 04:31 - Constitutional Appears: Non-toxic, No Acute Distress - Head Exam Head Exam: ATRAUMATIC, NORMAL INSPECTION, NORMOCEPHALIC - Eye Exam Eye Exam: EOMI, Normal appearance - ENT Exam ENT Exam: Mucous Membranes Moist - Neck Exam Neck Exam: Tenderness Additional comments: R-sided erythema, edema (increased from yesterday), firmness extending to approx 4 cm below the R clavicle, no crepitus or fluctuance no lesions observed - Respiratory Exam Respiratory Exam: NORMAL BREATHING PATTERN. absent: Accessory Muscle Use, Respiratory Distress - Cardiovascular Exam Cardiovascular Exam: REGULAR RHYTHM. absent: Tachycardia - GI/Abdominal Exam GI & Abdominal Exam: Soft. absent: Tenderness Additional comments: obese - Extremities Exam Extremities Exam: Normal Inspection. absent: Pedal Edema, Tenderness Additional comments: RUE nonpitting edema (poosible increased from yesterday), tender, neurovascularly intact abscess on R antecubital fossa- serous odorless drainage multiple eschars on hands, feet, legs - Neurological Exam Neurological Exam: Alert, Awake, CN II-XII Intact, Oriented x3 - Psychiatric Exam Psychiatric exam: Normal Affect, Normal Mood - Skin Skin Exam: Dry, Intact, Normal Color, Warm Additional comments: except as noted above Assessment and Plan - Assessment and Plan (Free Text) Assessment: 42F IV drug user with Staph aureus bacteremia, R infraclavicular abscess, R a ntecubital fossa draining abscess, and RUE DVT Plan: - Rec IR aspiration and drainage - C/S IR; all recs appreciated - Already with positive blood Cx x2- continue with IV abx as per ID - Rec staged CTs after the weekend to determine size of abscess - Therapeutic anticoagulation for acute DVT Case was discussed with attending, Dr. Galan. PGY-1 Veronica Noel D.O.
[2018-04-05] MEDS ORDERED: Potassium Chloride 20 mEq ER Tab PO ONE ×2 (09:14→14:54)
[2018-04-05] MEDS: Magnesium Oxide 400 mg Tab UD PO SCH ×2 (09:54→18:00)
[2018-04-05 11:04] LABS: HEPATITIS C ANTIBODY REACTIVE (NEGATIVE)
--- NOTE | 2018-04-05 13:08 | PN ---
DATE: 04/04/2018 A 42-year-old female. SUBJECTIVE: The patient's ultrasound report and getting venous Doppler upper extremity. She has no distress. PHYSICAL EXAMINATION: VITAL SIGNS: Temperature is 97.9, heart rate 70, blood pressure 112/66, and respirations 20. HEAD AND NECK: Normal. No JVD. No thyromegaly. NECK: On the right side, there is a mass, tender that need to be evaluated. CHEST: Clear bilaterally. CARDIAC: First sound and second sound normal. ABDOMEN: Soft, obese, and nontender. EXTREMITIES: No edema. NEUROLOGIC: Normal. LABORATORY DATA: The patient had laboratory studies include ultrasound of upper extremity shows DVT on the right, internal jugular and also she had blood work which shows white count 8.9, hemoglobin 10.5, hematocrit 31.9, and platelets 187. Chemistry showed sodium 138, potassium 3.5, chloride 107, bicarb 21, BUN 19, and creatinine 1. The patient has also abnormal liver function test including AST 43, ALT 36, and alk phos 173. IMPRESSION AND PLAN: 1. Acute deep venous thrombosis on the right subclavian internal jugular vein. We started the patient on IV heparin. The patient was consulted by Dr. Saulo Aden and surgical consult Dr. Elia Benitez . 2. Heroin addiction, was IV heroin. Rule out endocarditis. Positive blood cultures. Regular echocardiogram. Negative for any vegetations; however, small vegetation, there is a 2 mm would not be seen by regular echo. A CABRERA will be done. 3. Abnormal liver function test. We will get ultrasound of the liver and gallbladder. 4. Gram-positive cocci. Continue IV antibiotic, add nafcillin as per ID consult, . 5. Obesity. 6. Heroin addictions, tobacco addiction. Continue Suboxone. We have problem getting it, but authorizing it already yesterday, it should be available and continue Nicorette patch to follow up clinically and we will follow up with the window covering sales consultant. Dom Steele MD
--- NOTE | 2018-04-05 14:23 | CP.PCM.PN ---
<Hieu Ozuna - Last Filed: 04/05/18 14:19> Subjective - Date & Time of Evaluation Date of Evaluation: 04/05/18 Time of Evaluation: 07:00 - Subjective Subjective: ID progress note Patient seen and examined at bedside. Patient complains of right upper chest pain at side of infection. Denies shortness of breath, nausea, vomiting, diarrhea, fever, chills. Objective - Vital Signs/Intake and Output Vital Signs (last 24 hours): Temp Pulse Resp BP Pulse Ox 97.1 F L 73 20 114/55 L 96 04/05/18 12:00 04/05/18 12:00 04/05/18 12:00 04/05/18 12:00 04/05/18 06:00 Intake and Output: 04/05/18 04/05/18 06:59 18:59 Intake Total 997 Balance 997 - Medications Medications: Current Medications Acetaminophen (Tylenol 325mg Tab) 650 mg PO Q6H PRN PRN Reason: Fever >100.4 F Last Admin: 04/04/18 22:55 Dose: 650 mg Alprazolam (Xanax) 1 mg PO TID PRN; Protocol PRN Reason: Anxiety Last Admin: 04/05/18 11:25 Dose: 1 mg Aspirin (Aspirin Chewable) 81 mg PO DAILY [facility] Last Admin: 04/05/18 09:55 Dose: 81 mg Gabapentin (Neurontin) 100 mg PO TID [facility]; Protocol Last Admin: 04/05/18 09:54 Dose: 100 mg Home Med (Home Med) 1 unit SL TID PRN PRN Reason: drug craving Last Admin: 04/04/18 05:48 Dose: 1 unit Nafcillin Sodium 2 gm/ (Dextrose) 100 mls @ 100 mls/hr IVPB Q4 [facility]; Protocol Last Admin: 04/05/18 12:21 Dose: 100 mls/hr Heparin Sodium/Sodium Chloride (Heparin 57418 Units/250ml 1/2 Normal Saline) 25,000 units in 250 mls @ 21.4 mls/hr IV .[id number] PRN; Protocol PRN Reason: ADJUST RATE PER PROTOCOL Last Admin: 04/05/18 06:11 Dose: 12 units/kg/hr, 14.266 mls/hr Losartan Potassium (Cozaar) 50 mg PO DAILY [facility] Last Admin: 04/05/18 09:54 Dose: 50 mg Magnesium Oxide (Mag-Ox) 400 mg PO BID [facility] Last Admin: 04/05/18 09:54 Dose: 400 mg Metformin HCl (Glucophage) 850 mg PO BID [facility] Last Admin: 04/05/18 09:54 Dose: 850 mg Mirtazapine (Remeron) 15 mg PO HS [facility] Last Admin: 04/04/18 22:29 Dose: 15 mg Nicotine (Nicoderm Cq) 1 patch TD DAILY [facility] Last Admin: 04/05/18 09:54 Dose: 1 patch Pantoprazole Sodium (Protonix Ec Tab) 40 mg PO ACB [facility] Potassium Chloride (K-Dur 20 Meq Er Tab) 20 meq PO ONCE ONE Stop: 04/05/18 14:55 - Labs Labs: 04/04/18 09:50 04/04/18 09:50 APTT 51.3 Seconds (25.1-36.5) H 04/05/18 11:45 - Constitutional Appears: Non-toxic, No Acute Distress - Head Exam Head Exam: ATRAUMATIC, NORMAL INSPECTION, NORMOCEPHALIC - ENT Exam ENT Exam: Mucous Membranes Moist - Respiratory Exam Respiratory Exam: Clear to Ausculation Bilateral, NORMAL BREATHING PATTERN. absent: Rales, Rhonchi, Wheezes - Cardiovascular Exam Cardiovascular Exam: REGULAR RHYTHM, +S1, +S2, Murmur (Systolic) - GI/Abdominal Exam GI & Abdominal Exam: Soft, Normal Bowel Sounds. absent: Tenderness - Extremities Exam Extremities Exam: Normal Inspection. absent: Calf Tenderness, Pedal Edema - Neurological Exam Neurological Exam: Alert, Awake, Oriented x3 - Psychiatric Exam Psychiatric exam: Normal Affect, Normal Mood - Skin Skin Exam: Intact, Normal Color Assessment and Plan - Assessment and Plan (Free Text) Plan: Sepsis secondary to MSSA bacteremia with right neck and chest cellulitis Septic thrombophlebitis R/O endocarditis Hx of IVDA with Heroin Morbid Obesity BMI 47 Plan Continue on Nafcillin Recent blood cultures negative, previous cultures showing MSSA TTE shows no vegetations, will recommend CABRERA Patient will require anticoagulation for thrombus in Right IJ and Subclavian veins HIV negative Will continue to monitor Bhagwandin, PGY-3 <Stanford Duran - Last Filed: 04/05/18 16:08> Objective - Vital Signs/Intake and Output Vital Signs (last 24 hours): Temp Pulse Resp BP Pulse Ox 97.1 F L 73 20 114/55 L 96 04/05/18 12:00 04/05/18 12:00 04/05/18 12:00 04/05/18 12:00 04/05/18 06:00 Intake and Output: 04/05/18 04/05/18 06:59 18:59 Intake Total 997 Balance 997 - Medications Medications: Current Medications Acetaminophen (Tylenol 325mg Tab) 650 mg PO Q6H PRN PRN Reason: Fever >100.4 F Last Admin: 04/04/18 22:55 Dose: 650 mg Alprazolam (Xanax) 1 mg PO TID PRN; Protocol PRN Reason: Anxiety Last Admin: 04/05/18 11:25 Dose: 1 mg Aspirin (Aspirin Chewable) 81 mg PO DAILY [facility] Last Admin: 04/05/18 09:55 Dose: 81 mg Gabapentin (Neurontin) 100 mg PO TID [facility]; Protocol Last Admin: 04/05/18 15:48 Dose: 100 mg Home Med (Home Med) 1 unit SL TID PRN PRN Reason: drug craving Last Admin: 04/04/18 05:48 Dose: 1 unit Nafcillin Sodium 2 gm/ (Dextrose) 100 mls @ 100 mls/hr IVPB Q4 [facility]; Protocol Last Admin: 04/05/18 12:21 Dose: 100 mls/hr Heparin Sodium/Sodium Chloride (Heparin 63914 Units/250ml 1/2 Normal Saline) 25,000 units in 250 mls @ 21.4 mls/hr IV .[id number] PRN; Protocol PRN Reason: ADJUST RATE PER PROTOCOL Last Admin: 04/05/18 06:11 Dose: 12 units/kg/hr, 14.266 mls/hr Losartan Potassium (Cozaar) 50 mg PO DAILY [facility] Last Admin: 04/05/18 09:54 Dose: 50 mg Magnesium Oxide (Mag-Ox) 400 mg PO BID [facility] Last Admin: 04/05/18 09:54 Dose: 400 mg Metformin HCl (Glucophage) 850 mg PO BID [facility] Last Admin: 04/05/18 09:54 Dose: 850 mg Mirtazapine (Remeron) 15 mg PO HS [facility] Last Admin: 04/04/18 22:29 Dose: 15 mg Nicotine (Nicoderm Cq) 1 patch TD DAILY [facility] Last Admin: 04/05/18 09:54 Dose: 1 patch Pantoprazole Sodium (Protonix Ec Tab) 40 mg PO ACB [facility] - Labs Labs: 04/04/18 09:50 04/04/18 09:50 APTT 51.3 Seconds (25.1-36.5) H 04/05/18 11:45 Assessment and Plan - Assessment and Plan (Free Text) Plan: Infectious diseases Attending Physician Attestation Patient seen and examined, discussed with medical/surgery registered nurse. I have reviewed the patient's history of present illness, past medical, social, personal and family histories, pertinent physical exam findings, course so far in this hospital admission, pertinent laboratory and imaging results. I agree with the above findings, assessment and plan. In addition, will continue Nafcillin for sepsis due to MSSA bacteremia with right chest and neck skin and skin structure infection with probable septic thrombophlebitis of right internal jugular vein, R/O endocarditis. Repeat blood cx from 04/04 are negative so far and patient is for CABRERA. Will need anticoagulation. Follow surgery evaluation. Discussed with Dr. Steele.
--- NOTE | 2018-04-05 17:26 | PN ---
DATE: 04/05/2018 SEX OF THE PATIENT: Female. AGE OF THE PATIENT: 42. REASON FOR CONSULTATION AND FOLLOWUP: Cardiac evaluation, persistent bacteremia, rule out endocarditis. SUBJECTIVE: The patient denies any chest pain, shortness of breath, or any palpitation, but complained of pain in the neck. OBJECTIVE: GENERAL: Not in apparent distress. VITAL SIGNS: Temperature 99.8, heart rate 78, and blood pressure 106/55. HEENT: PERRLA. Extraocular muscles intact. NECK: Supple. No carotid bruit or thyromegaly. CHEST: Clear to auscultation. HEART: S1 and S2 regular. ABDOMEN: Soft. EXTREMITIES: Clubbing and cyanosis negative. LABORATORY DATA: Blood workup as follows: WBC 8.9, hemoglobin 10, hematocrit 31.9, and platelet count 187. Chemistry shows sodium 130, potassium 3.5, chloride , carbon dioxide 21, anion gap of 13, BUN 19, and creatinine 1. Blood culture from 04/04/2018 no growth, but multiple blood cultures remain positive. IMPRESSION AND RECOMMENDATIONS: A 42-year-old obese female with past medical history of substance abuse, persistently bacteremia. Recent echo shows no evidence of endocarditis, though the patient has persistent bacteremia. So, the patient is scheduled for CABRERA tomorrow. We will supplement potassium. I advised the patient not to use drugs in future. Emphasis made on modification of lifestyle, modification of risk factors for endocarditis. The patient complained of neck pain. CT of the neck was done, no mass noted. Continue antibiotics for now. We will do the CABRERA in the morning. We will give 40 of K-Dur to supplement potassium. Thank you for providing us the opportunity in taking care of the patient Gemma Fofana. Pattie Garrido MD
[2018-04-06] MEDS: Heparin25000 units/250ml 1/2NS 25,000 UNITS/250 ML BAG IV PRN ×2 (00:02→23:10)
[2018-04-06 03:18] LABS: BASO # 0.01 K/mm3 (0.0-2.0); BASO % 0.1 % (0.0-3.0); EOS # 0.1 (0.0-0.7); EOS % 1.5 % (1.5-5.0); GRAN # 4.92 (1.4-6.5); GRAN % 68.7 % (50.0-68.0); HEMOGLOBIN 11.3 g/dL (12.0-16.0); LYMPH # 1.8 (1.2-3.4); LYMPH % 25.2 % (22.0-35.0); MEAN CELL VOLUME 88.2 fl (80.0-105.0); MEAN CORPUSCULAR HGB CONC 32.9 g/dl (31.0-37.0); MEAN PLATELET VOLUME 9.9 fl (7.0-11.0); MONO # 0.3 (0.1-0.6); MONO % 4.5 % (1.0-6.0); RBC 3.89 10^6/uL (3.5-6.1); RED CELL DISTRIBUTION WIDTH 13.5 % (11.5-14.5); WHITE BLOOD COUNT 7.2 10^3/uL (4.5-11.0)
--- NOTE | 2018-04-06 09:54 | CP.PCM.PN ---
<Hieu Ozuna - Last Filed: 04/06/18 14:12> Subjective - Date & Time of Evaluation Date of Evaluation: 04/06/18 Time of Evaluation: 07:30 - Subjective Subjective: ID progress note Patient feeling well with improvement in cellulitis of right upper chest and neck. Denies chest pain, shortness of breath, nausea, vomiting, diarrhea, fever, chills. Objective - Vital Signs/Intake and Output Vital Signs (last 24 hours): Temp Pulse Resp BP Pulse Ox 98.9 F 98 H 18 127/64 98 04/06/18 06:00 04/06/18 06:00 04/06/18 06:00 04/06/18 06:00 04/06/18 06:00 Intake and Output: 04/06/18 04/06/18 06:59 18:59 Intake Total 970 Balance 970 - Medications Medications: Current Medications Acetaminophen (Tylenol 325mg Tab) 650 mg PO Q6H PRN PRN Reason: Fever >100.4 F Last Admin: 04/04/18 22:55 Dose: 650 mg Alprazolam (Xanax) 1 mg PO TID PRN; Protocol PRN Reason: Anxiety Last Admin: 04/05/18 21:52 Dose: 1 mg Aspirin (Aspirin Chewable) 81 mg PO DAILY [facility] Last Admin: 04/05/18 09:55 Dose: 81 mg Gabapentin (Neurontin) 100 mg PO TID [facility]; Protocol Last Admin: 04/05/18 17:59 Dose: 100 mg Home Med (Home Med) 1 unit SL TID PRN PRN Reason: drug craving Last Admin: 04/04/18 05:48 Dose: 1 unit Nafcillin Sodium 2 gm/ (Dextrose) 100 mls @ 100 mls/hr IVPB Q4 [facility]; Protocol Last Admin: 04/06/18 08:17 Dose: 100 mls/hr Heparin Sodium/Sodium Chloride (Heparin 38426 Units/250ml 1/2 Normal Saline) 25,000 units in 250 mls @ 21.4 mls/hr IV .[id number] PRN; Protocol PRN Reason: ADJUST RATE PER PROTOCOL Last Titration: 04/06/18 04:04 Dose: 11 units/kg/hr, 13.078 mls/hr Losartan Potassium (Cozaar) 50 mg PO DAILY [facility] Last Admin: 04/05/18 09:54 Dose: 50 mg Magnesium Oxide (Mag-Ox) 400 mg PO BID [facility] Last Admin: 04/05/18 18:00 Dose: 400 mg Metformin HCl (Glucophage) 850 mg PO BID [facility] Last Admin: 04/05/18 18:00 Dose: 850 mg Mirtazapine (Remeron) 15 mg PO HS [facility] Last Admin: 04/05/18 21:53 Dose: 15 mg Nicotine (Nicoderm Cq) 1 patch TD DAILY [facility] Last Admin: 04/05/18 09:54 Dose: 1 patch Pantoprazole Sodium (Protonix Ec Tab) 40 mg PO ACB [facility] - Labs Labs: 04/06/18 03:04 04/04/18 09:50 APTT 108.8 Seconds (25.1-36.5) H* 04/06/18 03:04 - Constitutional Appears: Non-toxic, No Acute Distress - Head Exam Head Exam: ATRAUMATIC, NORMAL INSPECTION, NORMOCEPHALIC - ENT Exam ENT Exam: Mucous Membranes Moist - Respiratory Exam Respiratory Exam: Clear to Ausculation Bilateral, NORMAL BREATHING PATTERN. absent: Rales, Rhonchi, Wheezes - Cardiovascular Exam Cardiovascular Exam: RRR, +S1, +S2 - GI/Abdominal Exam GI & Abdominal Exam: Soft, Normal Bowel Sounds. absent: Tenderness - Extremities Exam Extremities Exam: Normal Inspection. absent: Pedal Edema - Neurological Exam Neurological Exam: Alert, Awake, Oriented x3 - Psychiatric Exam Psychiatric exam: Normal Affect, Normal Mood - Skin Skin Exam: Dry, Intact, Normal Color Assessment and Plan - Assessment and Plan (Free Text) Plan: Sepsis secondary to MSSA bacteremia with right neck and chest cellulitis with abscess Septic thrombophlebitis R/O endocarditis Hx of IVDA with Heroin Morbid Obesity BMI 47 Plan Continue on Nafcillin at this time Recent blood cultures negative, previous cultures showing MSSA TTE negative for vegetations, CABRERA scheduled for today Patient will require anticoagulation for thrombus in Right IJ and Subclavian veins Gallbladder ultrasound pending Will continue to monitor Sulma, PGY-3 <Stanford Duran - Last Filed: 04/06/18 16:32> Objective - Vital Signs/Intake and Output Vital Signs (last 24 hours): Temp Pulse Resp BP Pulse Ox 98.9 F 67 16 130/60 97 04/06/18 13:06 04/06/18 15:05 04/06/18 13:06 04/06/18 15:05 04/06/18 13:06 Intake and Output: 04/06/18 04/06/18 06:59 18:59 Intake Total 970 125 Balance 970 125 - Medications Medications: Current Medications Acetaminophen (Tylenol 325mg Tab) 650 mg PO Q6H PRN PRN Reason: Fever >100.4 F Last Admin: 04/04/18 22:55 Dose: 650 mg Alprazolam (Xanax) 1 mg PO TID PRN; Protocol PRN Reason: Anxiety Last Admin: 04/05/18 21:52 Dose: 1 mg Aspirin (Aspirin Chewable) 81 mg PO DAILY [facility] Last Admin: 04/06/18 15:05 Dose: 81 mg Gabapentin (Neurontin) 100 mg PO TID [facility]; Protocol Last Admin: 04/06/18 15:05 Dose: 100 mg Home Med (Home Med) 1 unit SL TID PRN PRN Reason: drug craving Last Admin: 04/04/18 05:48 Dose: 1 unit Nafcillin Sodium 2 gm/ (Dextrose) 100 mls @ 100 mls/hr IVPB Q4 [facility]; Protocol Last Admin: 04/06/18 12:00 Dose: Not Given Heparin Sodium/Sodium Chloride (Heparin 35403 Units/250ml 1/2 Normal Saline) 25,000 units in 250 mls @ 21.4 mls/hr IV .[id number] PRN; Protocol PRN Reason: ADJUST RATE PER PROTOCOL Last Titration: 04/06/18 04:04 Dose: 11 units/kg/hr, 13.078 mls/hr Losartan Potassium (Cozaar) 50 mg PO DAILY [facility] Last Admin: 04/06/18 15:05 Dose: 50 mg Magnesium Oxide (Mag-Ox) 400 mg PO BID [facility] Last Admin: 04/06/18 14:56 Dose: Not Given Metformin HCl (Glucophage) 850 mg PO BID [facility] Last Admin: 04/06/18 11:21 Dose: Not Given Mirtazapine (Remeron) 15 mg PO HS [facility] Last Admin: 04/05/18 21:53 Dose: 15 mg Nicotine (Nicoderm Cq) 1 patch TD DAILY [facility] Last Admin: 04/06/18 15:06 Dose: 1 patch Pantoprazole Sodium (Protonix Ec Tab) 40 mg PO ACB [facility] Last Admin: 04/06/18 15:05 Dose: 40 mg - Labs Labs: 04/06/18 03:04 04/04/18 09:50 APTT 54.8 Seconds (25.1-36.5) H 04/06/18 11:15 Assessment and Plan - Assessment and Plan (Free Text) Plan: Infectious diseases Attending Physician Attestation Patient seen and examined, discussed with medical records technician. I have reviewed the patient's history of present illness, past medical, social, personal and family histories, pertinent physical exam findings, course so far in this hospital admission, pertinent laboratory and imaging results. I agree with the above findings, assessment and plan. In addition, continue Nafcillin for sepsis from MSSA bacteremia, with septic thomrbophlebitis of right internal jugular vein with neck abscess and cellulitis, R/O endocarditis. Follow up CABRERA results. Repeat blood cx are negative so far.
[2018-04-06] MEDS ORDERED: Flumazenil 0.1 mg/ml Inj (5ml) IVP ONE (11:51)
[2018-04-06] MEDS ORDERED: Naloxone 0.4 mg/ml Inj (Adult) ONE (11:51)
[2018-04-06] MEDS ORDERED: Midazolam 2 MG/2 ML VIAL ONE (11:51)
[2018-04-06] MEDS ORDERED: Benzocaine/Butamben/Tetracai 14-2-2% TOP Spray TOP ONE (11:53)
[2018-04-06] MEDS ORDERED: Midazolam 2 MG/2 ML VIAL IV ONE ×4 (12:08→12:14)
--- NOTE | 2018-04-06 13:28 | US ---
Date of service: 04/05/2018 HISTORY: [facility] COMPARISON: None. TECHNIQUE: Sonographic evaluation of the right upper quadrant of the abdomen. FINDINGS: LIVER: Measures 15.11 x 13.05 cm in length. Mildly increased echogenicity of the liver parenchyma. No mass. No intrahepatic bile duct dilatation. GALLBLADDER: Unremarkable. No gallstones. COMMON BILE DUCT: Measures 4 mm. No stones. No dilatation. PANCREAS: Unremarkable as visualized. No mass. No ductal dilatation. RIGHT KIDNEY: Measures 13.19 x 5.52 x 6.96 cm in length. Normal echogenicity. No calculus, mass, or hydronephrosis. AORTA: No aneurysmal dilatation. IVC: Unremarkable. OTHER FINDINGS: None . IMPRESSION: No acute findings. Probable fatty infiltration of the liver
--- NOTE | 2018-04-06 13:48 | PN ---
POST PROCEDURE NOTE DATE: 04/06/2018 SUBJECTIVE: The patient was brought to the echo lab for CABRERA. The patient was given total 3 mg of Versed, 100 of fentanyl and CABRERA was passed, patient woke up and pull the probe, then the patient was re-sedated again with 1 more mg of Versed of 100 of fentanyl, total 4 mg of Versed, 200 of fentanyl given and probe passed. Then, the patient again pulled the probe after waking up and she stated that she cannot take the test, so at that point the procedure was aborted. The patient was returned to PACU for observation, then will go to the floor. PLAN: Resume the diet after 2 hours and will take medically. Pattie Garrido MD [facility]
--- NOTE | 2018-04-06 14:10 | PN ---
DATE: 04/06/2018 REASON FOR CONSULTATION: Followup, cardiac evaluation, persistent bacteremia, rule out endocarditis. SUBJECTIVE: The patient denied any chest pain, shortness of breath, or any palpitation. She is complaining of pain in the neck. CAT scan was negative for any mass. PHYSICAL EXAMINATION: VITAL SIGNS: Temperature afebrile, heart rate 69, blood pressure 127/64. HEENT: PERRLA. Extraocular muscles intact. NECK: Supple. No carotid bruit or thyromegaly. CHEST: Clear to auscultation. HEART: S1 and S2 regular. ABDOMEN: Soft. EXTREMITIES: Clubbing and cyanosis negative. LABORATORY DATA: Blood workup as follows: WBC is 7.2, hemoglobin 11.3, hematocrit 34.3, and platelet count 241. Chemistry shows sodium 130, potassium 3.5, chloride 107, carbon dioxide 21, anion gap of 13, BUN 19, and creatinine 1. IMPRESSION AND PLAN: A 42-year-old female with a past medical history of substance abuse, persistent bacteremia. Recent echocardiogram shows no evidence of endocarditis. The patient is scheduled for transesophageal echocardiography to rule out endocarditis. CT of the neck was done, did not show any mass. We will supplement potassium. Further recommendation after the transesophageal echocardiography. We will follow with you. Thank you Dr. George for providing us the opportunity in taking care of the patient, Gemma Fofana. Pattie Garrido MD
[2018-04-06] MEDS: Magnesium Oxide 400 mg Tab UD PO SCH ×2 (14:56→18:19)
[2018-04-06] MEDS: Pantoprazole 40 mg EC Tab PO SCH (15:05)
[2018-04-07] MEDS: Heparin25000 units/250ml 1/2NS 25,000 UNITS/250 ML BAG IV PRN ×2 (08:15→17:09)
[2018-04-07] MEDS: Pantoprazole 40 mg EC Tab PO SCH (08:27)
--- NOTE | 2018-04-07 08:38 | CP.PCM.PN ---
Subjective - Date & Time of Evaluation Date of Evaluation: 04/07/18 Time of Evaluation: 06:15 - Subjective Subjective: Awake, lying in bed,,no distress Reason for consultation and follow up: Cardiac evaluation to rule out endocarditis, admitted for swelling of neck. heroin abuse Seen and examined by me and Dr. Garrido Objective - Vital Signs/Intake and Output Vital Signs (last 24 hours): Temp Pulse Resp BP Pulse Ox 98.6 F 66 20 106/51 L 98 04/07/18 06:00 04/07/18 06:00 04/07/18 06:00 04/07/18 06:00 04/07/18 06:00 Intake and Output: 04/07/18 04/07/18 06:59 18:59 Intake Total 1100 Balance 1100 - Medications Medications: Current Medications Alprazolam (Xanax) 1 mg PO TID PRN; Protocol PRN Reason: Anxiety Last Admin: 04/06/18 18:24 Dose: 1 mg Aspirin (Aspirin Chewable) 81 mg PO DAILY [facility] Last Admin: 04/06/18 15:05 Dose: 81 mg Gabapentin (Neurontin) 100 mg PO TID [facility]; Protocol Last Admin: 04/06/18 18:19 Dose: 100 mg Home Med (Home Med) 1 unit SL TID PRN PRN Reason: drug craving Last Admin: 04/04/18 05:48 Dose: 1 unit Nafcillin Sodium 2 gm/ (Dextrose) 100 mls @ 100 mls/hr IVPB Q4 [facility]; Protocol Last Admin: 04/07/18 07:23 Dose: 100 mls/hr Heparin Sodium/Sodium Chloride (Heparin 85032 Units/250ml 1/2 Normal Saline) 25,000 units in 250 mls @ 21.4 mls/hr IV .[id number] PRN; Protocol PRN Reason: ADJUST RATE PER PROTOCOL Last Admin: 04/06/18 23:10 Dose: 11 units/kg/hr, 13.078 mls/hr Losartan Potassium (Cozaar) 50 mg PO DAILY [facility] Last Admin: 04/06/18 15:05 Dose: 50 mg Magnesium Oxide (Mag-Ox) 400 mg PO BID [facility] Last Admin: 04/06/18 18:19 Dose: 400 mg Metformin HCl (Glucophage) 850 mg PO BID [facility] Last Admin: 04/06/18 18:19 Dose: 850 mg Mirtazapine (Remeron) 15 mg PO HS [facility] Last Admin: 04/06/18 21:59 Dose: 15 mg Nicotine (Nicoderm Cq) 1 patch TD DAILY [facility] Last Admin: 04/06/18 15:06 Dose: 1 patch Pantoprazole Sodium (Protonix Ec Tab) 40 mg PO ACB [facility] Last Admin: 04/07/18 08:27 Dose: 40 mg - Labs Labs: 04/06/18 03:04 04/04/18 09:50 APTT 41.4 Seconds (25.1-36.5) H 04/07/18 06:00 - Constitutional Appears: Non-toxic, No Acute Distress - Head Exam Head Exam: NORMAL INSPECTION, NORMOCEPHALIC - Eye Exam Eye Exam: Normal appearance Pupil Exam: NORMAL ACCOMODATION - ENT Exam ENT Exam: Mucous Membranes Moist, Normal Exam - Neck Exam Additional comments: less swelling right side of neck - Respiratory Exam Respiratory Exam: Decreased Breath Sounds, Clear to Ausculation Bilateral, NORMAL BREATHING PATTERN - Cardiovascular Exam Cardiovascular Exam: REGULAR RHYTHM, +S1, +S2 Additional comments: telemetry NSR 60's - GI/Abdominal Exam GI & Abdominal Exam: Soft, Normal Bowel Sounds - Extremities Exam Extremities Exam: Full ROM, Normal Capillary Refill - Neurological Exam Neurological Exam: Alert, Awake, Oriented x3 - Psychiatric Exam Psychiatric exam: Normal Affect, Normal Mood - Skin Skin Exam: Dry, Normal Color, Warm Assessment and Plan - Assessment and Plan (Free Text) Assessment: A 42 year old female who came in to the [facility] for evaluation of right side neck swelling. She was evaluated at [facility]. CT of neck was done and a mass was noted. Referred to [facility] for further evaluation. History of Heroin abuse (IVDA). Her last heroin injection was last week. History of COPD,depression, obesity and current smoker. Denies chest pain or shortness of breath. Consult was called to rule out endocarditis. CT of chest done, heterogenous apperance of the right IJ vein worrisome for thrombus, soft tissue swelling. Ultrasound of right neck soft tissue-multiple soft tissue nodules likely represent mildly enlarged lymph nodes. EKG- normal sinus rhythm, no ischemia. Troponin normal. 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 On IV antibiotics. No cardiac work up done at [facility]. Echo done and no vegetation.LVEF 65%. CABRERA was scheduled yesterday but aborted due to difficult sedation. Plan: CABRERA aborted yesterday due to difficult sedation Regular echo showed no vegetation Recent blood cultures negative x 2 prior blood cultures positive for Staphyloccocus aureaus Heart rate stable Blood pressure stable Continue IV antibiotics per ID On IV Heparin protocol for Right IJ thrombus On ASA 81 mg daily,Cozaar 50 mg daily,Nicotine patch daily Continue current treatment Continue current medications Will follow up Plan and treatment discussed with Dr. Garrido
[2018-04-07] MEDS: SUBOXONE SL PRN (08:43)
[2018-04-07] MEDS: Magnesium Oxide 400 mg Tab UD PO SCH ×2 (09:15→18:23)
[2018-04-07] MEDS: Potassium Chloride 20 mEq ER Tab PO SCH (12:02)
--- NOTE | 2018-04-07 13:33 | PN ---
DATE: 04/05/2018 SUBJECTIVE: The patient is comfortable. In no distress. No chest pain. She has no other complaint. PHYSICAL EXAMINATION: VITAL SIGNS: Temperature 97.1, heart rate 76, blood pressure 114/55, respirations 20. HEAD AND NECK: Normal. No JVD. No thyromegaly. The right side of the neck area is less tender. CHEST: Clear bilaterally. CARDIAC: First sound and second sound normal. ABDOMEN: Soft, obese, nontender. EXTREMITIES: No edema. NEUROLOGIC: Exam is normal. LABORATORY DATA: Labs have been ordered for next day in the morning. Her chemistry, sugar runs in 100 to 130 range. IMPRESSION AND PLAN: 1. Gram-positive coccemia, has positive blood culture. History of intravenous IV drug use. 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 Continue current IV antibiotic as per ID consult, Dr. Espinoza and currently she is on nafcillin 2 g IV every 4 hours. 2. Diabetes. Continue metformin and sliding scale. 3. Hypertension. Continue Cozaar 50 mg. 4. Anxiety, which is chronic. The patient has history of being on the Xanax higher dose. We will continue Xanax 1 mg three times a day, Remeron, and continue Suboxone. 5. History of drug abuse, history of tobacco abuse. We will continue the patient on the current therapy. Follow up clinically. Dom Steele MD
--- NOTE | 2018-04-07 13:40 | CP.PCM.PN ---
<Hieu Ozuna - Last Filed: 04/07/18 13:37> Subjective - Date & Time of Evaluation Date of Evaluation: 04/07/18 Time of Evaluation: 09:00 - Subjective Subjective: ID progress note Patient with no complaints this morning. Admits to improvement in cellulitic pain. Denies chest pain, shortness of breath, nausea, vomiting, diarrhea, fever, chills. Objective - Vital Signs/Intake and Output Vital Signs (last 24 hours): Temp Pulse Resp BP Pulse Ox 98.1 F 110 H 21 132/94 H 98 04/07/18 12:00 04/07/18 12:00 04/07/18 12:00 04/07/18 12:00 04/07/18 06:00 Intake and Output: 04/07/18 04/07/18 06:59 18:59 Intake Total 1100 250 Balance 1100 250 - Medications Medications: Current Medications Alprazolam (Xanax) 1 mg PO TID PRN; Protocol PRN Reason: Anxiety Last Admin: 04/07/18 11:38 Dose: 1 mg Aspirin (Aspirin Chewable) 81 mg PO DAILY [facility] Last Admin: 04/07/18 09:17 Dose: 81 mg Gabapentin (Neurontin) 100 mg PO TID [facility]; Protocol Last Admin: 04/07/18 09:16 Dose: 100 mg Home Med (Home Med) 1 unit SL TID PRN PRN Reason: drug craving Last Admin: 04/07/18 08:43 Dose: 1 unit Nafcillin Sodium 2 gm/ (Dextrose) 100 mls @ 100 mls/hr IVPB Q4 [facility]; Protocol Last Admin: 04/07/18 11:33 Dose: 100 mls/hr Heparin Sodium/Sodium Chloride (Heparin 25119 Units/250ml 1/2 Normal Saline) 25,000 units in 250 mls @ 21.4 mls/hr IV .[id number] PRN; Protocol PRN Reason: ADJUST RATE PER PROTOCOL Last Admin: 04/07/18 08:15 Dose: 13 units/kg/hr, 15.455 mls/hr Losartan Potassium (Cozaar) 50 mg PO DAILY [facility] Last Admin: 04/07/18 09:10 Dose: 50 mg Magnesium Oxide (Mag-Ox) 400 mg PO BID [facility] Last Admin: 04/07/18 09:15 Dose: 400 mg Metformin HCl (Glucophage) 850 mg PO BID [facility] Last Admin: 04/07/18 09:15 Dose: 850 mg Mirtazapine (Remeron) 15 mg PO HS [facility] Last Admin: 04/06/18 21:59 Dose: 15 mg Nicotine (Nicoderm Cq) 1 patch TD DAILY [facility] Last Admin: 04/07/18 09:10 Dose: 1 patch Pantoprazole Sodium (Protonix Ec Tab) 40 mg PO ACB [facility] Last Admin: 04/07/18 08:27 Dose: 40 mg Potassium Chloride (K-Dur 20 Meq Er Tab) 20 meq PO BRK [facility] Last Admin: 04/07/18 12:02 Dose: 20 meq - Labs Labs: 04/06/18 03:04 04/04/18 09:50 APTT 41.4 Seconds (25.1-36.5) H 04/07/18 06:00 - Constitutional Appears: Non-toxic, No Acute Distress - Head Exam Head Exam: ATRAUMATIC, NORMAL INSPECTION, NORMOCEPHALIC - ENT Exam ENT Exam: Mucous Membranes Moist - Respiratory Exam Respiratory Exam: Clear to Ausculation Bilateral, NORMAL BREATHING PATTERN. absent: Rales, Rhonchi, Wheezes - Cardiovascular Exam Cardiovascular Exam: RRR, +S1, +S2 - GI/Abdominal Exam GI & Abdominal Exam: Soft, Normal Bowel Sounds. absent: Tenderness - Extremities Exam Extremities Exam: Normal Inspection. absent: Pedal Edema - Neurological Exam Neurological Exam: Alert, Awake, Oriented x3 - Psychiatric Exam Psychiatric exam: Normal Affect, Normal Mood - Skin Skin Exam: Erythema (Right neck and chest), Intact Assessment and Plan - Assessment and Plan (Free Text) Plan: Sepsis secondary to MSSA bacteremia with right neck and chest cellulitis with abscess Septic thrombophlebitis of right IJ Hx of IVDA with Heroin Morbid Obesity BMI 47 Plan Patient unable to tolerate CABRERA Continue on Nafcillin IV for 4-6 weeks Recent blood cultures negative, previous cultures showing MSSA Patient will require anticoagulation for septic thrombus in Right IJ and Subclavian veins Will continue to monitor Sulma, PGY-3 <Stanford Duran - Last Filed: 04/07/18 13:43> Objective - Vital Signs/Intake and Output Vital Signs (last 24 hours): Temp Pulse Resp BP Pulse Ox 98.1 F 110 H 21 132/94 H 98 04/07/18 12:00 04/07/18 12:00 04/07/18 12:00 04/07/18 12:00 04/07/18 06:00 Intake and Output: 04/07/18 04/07/18 06:59 18:59 Intake Total 1100 250 Balance 1100 250 - Medications Medications: Current Medications Alprazolam (Xanax) 1 mg PO TID PRN; Protocol PRN Reason: Anxiety Last Admin: 04/07/18 11:38 Dose: 1 mg Aspirin (Aspirin Chewable) 81 mg PO DAILY [facility] Last Admin: 04/07/18 09:17 Dose: 81 mg Gabapentin (Neurontin) 100 mg PO TID [facility]; Protocol Last Admin: 04/07/18 09:16 Dose: 100 mg Home Med (Home Med) 1 unit SL TID PRN PRN Reason: drug craving Last Admin: 04/07/18 08:43 Dose: 1 unit Nafcillin Sodium 2 gm/ (Dextrose) 100 mls @ 100 mls/hr IVPB Q4 [facility]; Protocol Last Admin: 04/07/18 11:33 Dose: 100 mls/hr Heparin Sodium/Sodium Chloride (Heparin 64311 Units/250ml 1/2 Normal Saline) 25,000 units in 250 mls @ 21.4 mls/hr IV .[id number] PRN; Protocol PRN Reason: ADJUST RATE PER PROTOCOL Last Admin: 04/07/18 08:15 Dose: 13 units/kg/hr, 15.455 mls/hr Losartan Potassium (Cozaar) 50 mg PO DAILY [facility] Last Admin: 04/07/18 09:10 Dose: 50 mg Magnesium Oxide (Mag-Ox) 400 mg PO BID [facility] Last Admin: 04/07/18 09:15 Dose: 400 mg Metformin HCl (Glucophage) 850 mg PO BID [facility] Last Admin: 04/07/18 09:15 Dose: 850 mg Mirtazapine (Remeron) 15 mg PO HS [facility] Last Admin: 04/06/18 21:59 Dose: 15 mg Nicotine (Nicoderm Cq) 1 patch TD DAILY [facility] Last Admin: 04/07/18 09:10 Dose: 1 patch Pantoprazole Sodium (Protonix Ec Tab) 40 mg PO ACB [facility] Last Admin: 04/07/18 08:27 Dose: 40 mg Potassium Chloride (K-Dur 20 Meq Er Tab) 20 meq PO BRK [facility] Last Admin: 04/07/18 12:02 Dose: 20 meq - Labs Labs: 04/06/18 03:04 04/04/18 09:50 APTT 41.4 Seconds (25.1-36.5) H 04/07/18 06:00 Assessment and Plan - Assessment and Plan (Free Text) Plan: Infectious diseases Attending Physician Attestation Patient seen and examined, discussed with medical collections specialist. I have reviewed the patient's history of present illness, past medical, social, personal and family histories, pertinent physical exam findings, course so far in this hospital admission, pertinent laboratory and imaging results. I agree with the above findings, assessment and plan. In addition, continue Nafcillin for sepsis from MSSA bacteremia, with septic thomrbophlebitis of right internal jugular vein with neck abscess and cellulitis, R/O endocarditis. According to Dr. Garrido, CABRERA was technically difficult to do. Will still need 4-6 weeks (from 1st negative blood cx )of antibiotics regardless, with weekly CRP, CBC, CMP. Repeat blood cx are negative so far.
--- NOTE | 2018-04-07 14:57 | PN ---
DATE: 04/07/2018 REASON FOR CONSULTATION AND FOLLOWUP: Cardiac evaluation, rule out endocarditis, admitted with neck swelling, heroin abuse, percent blood culture positive. This note is in addition to dictated by nurse practitioner, Anabell Saldana, yesterday, TU is attempted twice after sedation, but the patient on waking up pulled the tube twice, unsuccessful, so procedure was aborted. Now, the patient has repeat blood culture dated 06/05/2017 is negative after being first initial blood culture was positive for 2 sets on dated 03/31/2018 and 04/02/2018. RECOMMENDATION: Continue IV antibiotic as per ID. We will discontinue telemetry. Emphasis made on modification of lifestyle, modification of risk factors and also avoid complete cessation of smoking, complete cessation of substance abuse. We will discontinue telemetry and sign off, glad to follow p.r.n. Thank you Dr. Steele for providing us the opportunity in taking care of the patient, Raven Menendez. The patient's regular transthoracic echo dated 04/02/2018 that revealed normal chambers of ejection fraction 65%, trace MR, trace AR, mild TR, RV systolic pressure of 40, no vegetation or thrombus noted. We will discontinue telemetry, and we will sign off and glad to follow p.r.n. Possible the patient may need PICC lines because the line is an femoral with high risk of further sepsis. Also, the patient's because use that substance abuse so she can shoot the drug from the center line so probably get some PICC line or something, that will be more relatively safer than groin. Thank you Dr. Steele for providing us the opportunity in taking care of the patient, Gemma Carbajal. Pattie Garrido MD
--- NOTE | 2018-04-07 15:17 | CP.PCM.PN ---
Subjective - Date & Time of Evaluation Date of Evaluation: 04/07/18 Time of Evaluation: 15:00 - Subjective Subjective: Surgery progress note for Dr. Galan Pt seen and examined at bedside. Patient resting comfortably, denies any fevers, chills, difficulty breathing or swallowing. Reports mild pain improved from admit. Discussed at length importance of patient stopping IV drug use Objective - Vital Signs/Intake and Output Vital Signs (last 24 hours): Temp Pulse Resp BP Pulse Ox 98.1 F 110 H 21 132/94 H 98 04/07/18 12:00 04/07/18 12:00 04/07/18 12:00 04/07/18 12:00 04/07/18 06:00 Intake and Output: 04/07/18 04/07/18 06:59 18:59 Intake Total 1100 250 Balance 1100 250 - Medications Medications: Current Medications Alprazolam (Xanax) 1 mg PO TID PRN; Protocol PRN Reason: Anxiety Last Admin: 04/07/18 11:38 Dose: 1 mg Aspirin (Aspirin Chewable) 81 mg PO DAILY [facility] Last Admin: 04/07/18 09:17 Dose: 81 mg Gabapentin (Neurontin) 100 mg PO TID [facility]; Protocol Last Admin: 04/07/18 09:16 Dose: 100 mg Home Med (Home Med) 1 unit SL TID PRN PRN Reason: drug craving Last Admin: 04/07/18 08:43 Dose: 1 unit Nafcillin Sodium 2 gm/ (Dextrose) 100 mls @ 100 mls/hr IVPB Q4 [facility]; Protocol Last Admin: 04/07/18 11:33 Dose: 100 mls/hr Heparin Sodium/Sodium Chloride (Heparin 30650 Units/250ml 1/2 Normal Saline) 25,000 units in 250 mls @ 21.4 mls/hr IV .[id number] PRN; Protocol PRN Reason: ADJUST RATE PER PROTOCOL Last Admin: 04/07/18 08:15 Dose: 13 units/kg/hr, 15.455 mls/hr Losartan Potassium (Cozaar) 50 mg PO DAILY [facility] Last Admin: 04/07/18 09:10 Dose: 50 mg Magnesium Oxide (Mag-Ox) 400 mg PO BID [facility] Last Admin: 04/07/18 09:15 Dose: 400 mg Metformin HCl (Glucophage) 850 mg PO BID [facility] Last Admin: 12/20/18 09:15 Dose: 850 mg Mirtazapine (Remeron) 15 mg PO HS [facility] Last Admin: 04/06/18 21:59 Dose: 15 mg Nicotine (Nicoderm Cq) 1 patch TD DAILY [facility] Last Admin: 04/07/18 09:10 Dose: 1 patch Pantoprazole Sodium (Protonix Ec Tab) 40 mg PO ACB [facility] Last Admin: 04/07/18 08:27 Dose: 40 mg Potassium Chloride (K-Dur 20 Meq Er Tab) 20 meq PO BRK [facility] Last Admin: 04/07/18 12:02 Dose: 20 meq - Labs Labs: 04/06/18 03:04 04/04/18 09:50 APTT 41.4 Seconds (25.1-36.5) H 04/07/18 06:00 - Constitutional Appears: Well, Non-toxic, No Acute Distress - Head Exam Head Exam: ATRAUMATIC, NORMOCEPHALIC - Eye Exam Eye Exam: Normal appearance. absent: Conjunctival injection, Scleral icterus - ENT Exam ENT Exam: Mucous Membranes Moist, Normal Oropharynx - Neck Exam Additional comments: right anterior neck mild swelling and erythema, no fluctuance or crepitus, trachea midline - Respiratory Exam Respiratory Exam: NORMAL BREATHING PATTERN. absent: Accessory Muscle Use, Respiratory Distress - Cardiovascular Exam Cardiovascular Exam: RRR - GI/Abdominal Exam GI & Abdominal Exam: Soft. absent: Distended - Extremities Exam Extremities Exam: absent: Calf Tenderness, Pedal Edema, Tenderness - Neurological Exam Neurological Exam: Alert, Normal Gait, Oriented x3 - Psychiatric Exam Psychiatric exam: Normal Affect, Normal Mood - Skin Skin Exam: Dry, Normal Color, Warm Assessment and Plan - Assessment and Plan (Free Text) Assessment: 42F with abscess of the right neck posterior to the clavicle extending from supraclavicular to infraclavicular, RIJ/R subclavian DVT Plan: Continue IV antibiotics per ID Continue blood thinners per primary Recommend IR drainage of the abscess for treatment and/or further diagnosis Recommend repeat CT of the chest and neck to re-assess Discussed with Dr. Angelia De La Garza, PGY2
[2018-04-07] MEDS ORDERED: SUBOXONE SL PRN (17:07)
[2018-04-07] MEDS ORDERED: SUBOXONE PO PRN (17:09)
--- NOTE | 2018-04-08 07:43 | CP.PCM.PN ---
Subjective - Date & Time of Evaluation Date of Evaluation: 04/08/18 Time of Evaluation: 07:40 - Subjective Subjective: Surgery progress note for Dr. Galan's service: Patient was seen and examined this morning. She states that her pain is improving. She is not having any trouble breathing or swallowing. No focal motor/sensory deficit of her R arm. She feels like the neck and chest swelling is decreasing. She denies fevers/chills, nausea, vomiting, diarrhea, constipation. Objective - Vital Signs/Intake and Output Vital Signs (last 24 hours): Temp Pulse Resp BP Pulse Ox 97.1 F L 66 21 120/71 98 04/07/18 18:00 04/07/18 18:00 04/07/18 18:00 04/07/18 18:00 04/07/18 06:00 - Medications Medications: Current Medications Alprazolam (Xanax) 1 mg PO TID PRN; Protocol PRN Reason: Anxiety Last Admin: 04/07/18 21:19 Dose: 1 mg Aspirin (Aspirin Chewable) 81 mg PO DAILY [facility] Last Admin: 04/07/18 09:17 Dose: 81 mg Gabapentin (Neurontin) 100 mg PO TID [facility]; Protocol Last Admin: 04/07/18 18:23 Dose: 100 mg Home Med (Home Med) 1 unit PO TID PRN PRN Reason: drug craving Last Admin: 04/07/18 21:35 Dose: 1 unit Nafcillin Sodium 2 gm/ (Dextrose) 100 mls @ 100 mls/hr IVPB Q4 [facility]; Protocol Last Admin: 04/08/18 03:10 Dose: 100 mls/hr Heparin Sodium/Sodium Chloride (Heparin 82294 Units/250ml 1/2 Normal Saline) 25,000 units in 250 mls @ 21.4 mls/hr IV .[id number] PRN; Protocol PRN Reason: ADJUST RATE PER PROTOCOL Last Admin: 04/07/18 17:09 Dose: 11 units/kg/hr, 13.078 mls/hr Losartan Potassium (Cozaar) 50 mg PO DAILY [facility] Last Admin: 04/07/18 09:10 Dose: 50 mg Magnesium Oxide (Mag-Ox) 400 mg PO BID [facility] Last Admin: 04/07/18 18:23 Dose: 400 mg Metformin HCl (Glucophage) 850 mg PO BID [facility] Last Admin: 12/20/18 18:23 Dose: 850 mg Mirtazapine (Remeron) 15 mg PO HS [facility] Last Admin: 04/07/18 21:20 Dose: 15 mg Nicotine (Nicoderm Cq) 1 patch TD DAILY [facility] Last Admin: 04/07/18 09:10 Dose: 1 patch Pantoprazole Sodium (Protonix Ec Tab) 40 mg PO ACB [facility] Last Admin: 04/07/18 08:27 Dose: 40 mg Potassium Chloride (K-Dur 20 Meq Er Tab) 20 meq PO BRK [facility] Last Admin: 04/07/18 12:02 Dose: 20 meq - Labs Labs: 04/06/18 03:04 04/04/18 09:50 APTT 61.2 Seconds (25.1-36.5) H 04/07/18 23:08 - Constitutional Appears: Non-toxic, No Acute Distress - Head Exam Head Exam: ATRAUMATIC, NORMAL INSPECTION - Eye Exam Eye Exam: EOMI, Normal appearance - ENT Exam ENT Exam: Mucous Membranes Moist, Normal Exam - Neck Exam Neck Exam: Tenderness (mild- improved). absent: Lymphadenopathy Additional comments: R-sided neck, chest swelling- less firm, less erythematous - Respiratory Exam Respiratory Exam: Chest Wall Tenderness (R-sided chest where edema/erythema is), NORMAL BREATHING PATTERN. absent: Accessory Muscle Use, Respiratory Distress - Cardiovascular Exam Cardiovascular Exam: REGULAR RHYTHM - GI/Abdominal Exam GI & Abdominal Exam: Soft. absent: Distended, Tenderness - Extremities Exam Extremities Exam: Normal Capillary Refill. absent: Pedal Edema, Tenderness - Neurological Exam Neurological Exam: Alert, Awake, CN II-XII Intact, Oriented x3 - Psychiatric Exam Psychiatric exam: Normal Affect, Normal Mood - Skin Skin Exam: Dry, Normal Color, Warm Assessment and Plan - Assessment and Plan (Free Text) Assessment: 42 F with abscess of the right neck posterior to the clavicle extending from supraclavicular to infraclavicular and RIJ/R subclavian DVT Plan: - Repeat blood Cx from 04/04 no growth >4 days - Recommend repeat CT neck/chest to assess size of abscess and possibility of IR drainage - Continue IV antbiotics as per ID - Continue therapeutic anticoagulation for DVT Case was discussed with attending, Dr. Galan. PGY-1 Veronica Noel D.O.
[2018-04-08 08:15] LABS: BLOOD UREA NITROGEN 9 mg/dL (7-21); CALCIUM 8.8 mg/dL (8.4-10.5); GFR NON-AFRICAN AMERICAN > 60
[2018-04-08] MEDS: Potassium Chloride 20 mEq ER Tab PO SCH (08:40)
[2018-04-08] MEDS: Pantoprazole 40 mg EC Tab PO SCH (08:40)
--- NOTE | 2018-04-08 09:01 | PN ---
DATE: 04/06/2018 SUBJECTIVE: The patient is comfortable. No distress. The patient has no nausea. No vomiting. Afebrile. Stable. The patient does not want anybody. She does not want her further to know except that she is sick in the hospital being treated. PHYSICAL EXAMINATION: VITAL SIGNS: Temperature is 98, heart rate 64, blood pressure 106/51, respirations 20, sat 98% on room air. HEENT: Head and neck exam is normal. No JVD. No thyromegaly. CHEST: Clear bilaterally. CARDIAC: First sound and second sound normal. ABDOMEN: Soft. Obese and nontender. EXTREMITIES: No edema. NEUROLOGIC: Normal. LABORATORY DATA: On 04/06/2018, blood sugar in the 150. White count 7.2, hemoglobin 11.3, hematocrit 34.3, and platelets 241. IMPRESSION AND PLAN: 1. The patient had right neck area cellulitis or infectious lymphadenitis, possible collection. Surgical consult recommended intravenous antibiotics. Seems clinically better. Continue nafcillin. 2. Possible endocarditis. Could not get transesophageal echocardiogram due to the patient's . Continue current therapy for now as treated medically as endocarditis with intravenous nafcillin. 3. Drug abuse, tobacco abuse. Continue current medications, Suboxone and nicotine patch. 4. Chronic benzodiazepine dependency. The patient states she has been taking it for chronic anxiety, unclear. Continue Xanax for now. 5. Deep venous thrombosis, right subclavian internal jugular. Continue intravenous heparin. We may switch to p.o. medications. Continue current therapy. Follow up clinically. Dom Steele MD
[2018-04-08] MEDS: Magnesium Oxide 400 mg Tab UD PO SCH ×2 (09:44→17:38)
--- NOTE | 2018-04-08 12:02 | PN ---
DATE: 04/07/2018 SUBJECTIVE: This is a 42-year-old female. She is here on IV heparin, IV antibiotic, doing well. No other complaints. PHYSICAL EXAMINATION VITAL SIGNS: Temperature 98, heart rate is 64, blood pressure 132/94, respirations 21. HEENT: Head and neck normal. No JVD. No thyromegaly. CHEST: Clear bilaterally. CARDIAC: First sound and second sound normal. ABDOMEN: Soft. Obese and nontender. EXTREMITIES: No edema. NEUROLOGIC: Normal. LABORATORY DATA: Last lab; white count 7.2, hemoglobin 11.3, hematocrit 34.3, and platelets 241. Chemistry showed blood sugar 140,150 and stable. IMPRESSION AND PLAN: 1. Gram-positive bacteremia with possible endocarditis. 2. History of drug abuse, intravenous use. We will continue intravenous and therapy as per Infectious Disease consult. Currently, on nafcillin intravenous 2 g every 4 hours scheduled. 3. The patient has deep venous thrombosis right subclavian and internal jugular. Continue intravenous heparin. 4. History of drug use disorder. She takes heroin. Right now, she uses Suboxone films and continue current therapy. 5. Nicotine tobacco addiction. She is on Nicoderm, Neurontin earlier on. Continue current therapy. 6. Chronic anxiety disorder. She was on high dose Xanax, now doing very well. Xanax 1 mg 3 times a day if needed. Continue current therapy. 7. Followup as an outpatient. Continue baby aspirin, Cozaar 50 for blood pressure. She is doing well. 8. Diabetes, continue metformin 850 plus insulin coverage. Dom Steele MD
[2018-04-08] MEDS: Insulin Reg-LOW-Coverage SC SCH ×3 (12:15→22:29)
[2018-04-08] MEDS: Heparin25000 units/250ml 1/2NS 25,000 UNITS/250 ML BAG IV PRN (12:18)
--- NOTE | 2018-04-08 13:43 | CP.PCM.PN ---
<Hieu Ozuna - Last Filed: 04/08/18 13:38> Subjective - Date & Time of Evaluation Date of Evaluation: 04/08/18 Time of Evaluation: 07:00 - Subjective Subjective: ID progress note Patient seen at bedside. Patient states she feels well with no complaints. Denies chest pain, shortness of breath, nausea, vomiting, diarrhea, fever, chills. Objective - Vital Signs/Intake and Output Vital Signs (last 24 hours): Temp Pulse Resp BP Pulse Ox 98.4 F 67 18 124/87 96 04/08/18 06:00 04/08/18 09:45 04/08/18 06:00 04/08/18 09:45 04/08/18 06:00 Intake and Output: 04/08/18 04/08/18 06:59 18:59 Intake Total 225 Balance 225 - Medications Medications: Current Medications Alprazolam (Xanax) 1 mg PO TID PRN; Protocol PRN Reason: Anxiety Last Admin: 04/08/18 09:07 Dose: 1 mg Aspirin (Aspirin Chewable) 81 mg PO DAILY [facility] Last Admin: 04/08/18 09:45 Dose: 81 mg Gabapentin (Neurontin) 100 mg PO TID [facility]; Protocol Last Admin: 04/08/18 09:45 Dose: 100 mg Home Med (Home Med) 1 unit PO TID PRN PRN Reason: drug craving Last Admin: 04/07/18 21:35 Dose: 1 unit Heparin Sodium/Sodium Chloride (Heparin 46323 Units/250ml 1/2 Normal Saline) 25,000 units in 250 mls @ 21.4 mls/hr IV .[id number] PRN; Protocol PRN Reason: ADJUST RATE PER PROTOCOL Last Admin: 04/08/18 12:18 Dose: 13 units/kg/hr, 15.455 mls/hr Insulin Human Regular (Humulin R Low) 0 units SC ACHS [facility]; Protocol Last Admin: 04/08/18 12:15 Dose: Not Given Losartan Potassium (Cozaar) 50 mg PO DAILY [facility] Last Admin: 04/08/18 09:45 Dose: 50 mg Magnesium Oxide (Mag-Ox) 400 mg PO BID [facility] Last Admin: 04/08/18 09:44 Dose: 400 mg Metformin HCl (Glucophage) 850 mg PO BID [facility] Last Admin: 04/08/18 10:24 Dose: Not Given Mirtazapine (Remeron) 15 mg PO HS [facility] Last Admin: 04/07/18 21:20 Dose: 15 mg Nicotine (Nicoderm Cq) 1 patch TD DAILY [facility] Last Admin: 04/08/18 09:45 Dose: 1 patch Pantoprazole Sodium (Protonix Ec Tab) 40 mg PO ACB [facility] Last Admin: 04/08/18 08:40 Dose: 40 mg Potassium Chloride (K-Dur 20 Meq Er Tab) 20 meq PO BRK [facility] Last Admin: 04/08/18 08:40 Dose: 20 meq - Labs Labs: 04/06/18 03:04 04/08/18 07:15 APTT 39.1 Seconds (25.1-36.5) H 04/08/18 09:00 - Constitutional Appears: Non-toxic, No Acute Distress - Head Exam Head Exam: ATRAUMATIC, NORMAL INSPECTION, NORMOCEPHALIC - ENT Exam ENT Exam: Mucous Membranes Moist - Respiratory Exam Respiratory Exam: Clear to Ausculation Bilateral, NORMAL BREATHING PATTERN - Cardiovascular Exam Cardiovascular Exam: RRR, +S1, +S2 - GI/Abdominal Exam GI & Abdominal Exam: Soft, Normal Bowel Sounds. absent: Tenderness - Extremities Exam Extremities Exam: Normal Inspection. absent: Pedal Edema - Neurological Exam Neurological Exam: Alert, Awake, Oriented x3 - Psychiatric Exam Psychiatric exam: Normal Affect, Normal Mood - Skin Skin Exam: Erythema (Upper right chest and neck), Intact, Warm Assessment and Plan - Assessment and Plan (Free Text) Plan: Sepsis secondary to MSSA bacteremia with right neck and chest cellulitis with abscess Septic thrombophlebitis of right IJ Hepatitis C Hx of IVDA with Heroin Morbid Obesity BMI 47 Plan Continue on Nafcillin IV for 4-6 weeks Hepatitis positive, will obtain viral load HIV negative Recent blood cultures negative, previous cultures showing MSSA Patient will require anticoagulation for septic thrombus in Right IJ and Subclavian veins Will continue to monitor Sulma, PGY-3 <Stanford Duran - Last Filed: 04/08/18 23:02> Objective - Vital Signs/Intake and Output Vital Signs (last 24 hours): Temp Pulse Resp BP Pulse Ox 99.1 F 67 20 152/95 H 95 04/08/18 22:27 04/08/18 22:27 04/08/18 22:27 12/21/18 22:27 04/08/18 22:27 Intake and Output: 04/08/18 04/09/18 18:59 06:59 Intake Total 225 Balance 225 - Medications Medications: Current Medications Acetaminophen (Tylenol 325mg Tab) 650 mg PO Q6H PRN PRN Reason: Pain, moderate (4-7) Last Admin: 04/08/18 17:36 Dose: 650 mg Alprazolam (Xanax) 1 mg PO TID PRN; Protocol PRN Reason: Anxiety Last Admin: 04/08/18 09:07 Dose: 1 mg Aspirin (Aspirin Chewable) 81 mg PO DAILY [facility] Last Admin: 04/08/18 09:45 Dose: 81 mg Gabapentin (Neurontin) 100 mg PO TID [facility]; Protocol Last Admin: 04/08/18 17:37 Dose: 100 mg Home Med (Home Med) 1 unit PO TID PRN PRN Reason: drug craving Last Admin: 04/07/18 21:35 Dose: 1 unit Heparin Sodium/Sodium Chloride (Heparin 88241 Units/250ml 1/2 Normal Saline) 25,000 units in 250 mls @ 21.4 mls/hr IV .[id number] PRN; Protocol PRN Reason: ADJUST RATE PER PROTOCOL Last Admin: 04/08/18 12:18 Dose: 13 units/kg/hr, 15.455 mls/hr Sodium Chloride (Sodium Chloride 0.9%) 1,000 mls @ 150 mls/hr IV .[id number] [facility] Last Admin: 04/08/18 15:20 Dose: 150 mls/hr Nafcillin Sodium 2 gm/ (Dextrose) 100 mls @ 100 mls/hr IVPB Q4 [facility]; Protocol Stop: 05/20/18 16:01 Last Admin: 04/08/18 22:24 Dose: 100 mls/hr Insulin Human Regular (Humulin R Low) 0 units SC ACHS [facility]; Protocol Last Admin: 04/08/18 22:29 Dose: Not Given Lidocaine (Lidoderm) 1 ea TD DAILY [facility] Last Admin: 04/08/18 17:38 Dose: 1 ea Losartan Potassium (Cozaar) 50 mg PO DAILY [facility] Last Admin: 04/08/18 09:45 Dose: 50 mg Magnesium Oxide (Mag-Ox) 400 mg PO BID [facility] Stop: 04/08/18 23:59 Last Admin: 04/08/18 17:38 Dose: 400 mg Metformin HCl (Glucophage) 850 mg PO BID [facility] Last Admin: 04/08/18 10:24 Dose: Not Given Mirtazapine (Remeron) 15 mg PO HS [facility] Last Admin: 04/08/18 22:24 Dose: 15 mg Nicotine (Nicoderm Cq) 1 patch TD DAILY [facility] Last Admin: 04/08/18 09:45 Dose: 1 patch Pantoprazole Sodium (Protonix Ec Tab) 40 mg PO ACB [facility] Last Admin: 04/08/18 08:40 Dose: 40 mg Potassium Chloride (K-Dur 20 Meq Er Tab) 20 meq PO BRK [facility] Last Admin: 04/08/18 08:40 Dose: 20 meq - Labs Labs: 04/06/18 03:04 04/08/18 07:15 APTT 69.6 Seconds (25.1-36.5) H 04/08/18 16:05 Assessment and Plan - Assessment and Plan (Free Text) Plan: Infectious diseases Attending Physician Attestation Patient seen and examined, discussed with medical cash poster. I have reviewed the patient's history of present illness, past medical, social, personal and family histories, pertinent physical exam findings, course so far in this hospital admission, pertinent laboratory and imaging results. I agree with the above findings, assessment and plan. In addition, continue Nafcillin for sepsis due to MSSA bacterermia, probably from right internal jugular septic thrombophlebitis, R/O endocarditis in this IV drug user. Repeat blood cx are negative and will need 4-6 weeks of antibiotiv with weekly CRP, CBC, CMP while on antibiotics, to be monitored by PMD as an outpatient. CABRERA was technically difficult as per Cardio and it was not completed.
[2018-04-08] MEDS ORDERED: Lidocaine 2% Inj (20ml) ONE (14:18)
[2018-04-08] MEDS: Sodium Chloride 0.9% 1,000 ML IV SCH (15:20)
[2018-04-08] MEDS: Lidocaine 5% Patch TD SCH (17:38)
[2018-04-09] MEDS: Sodium Chloride 0.9% 1,000 ML IV SCH ×2 (03:46→17:50)
[2018-04-09 09:22] LABS: ALB/GLOB RATIO 0.9 (1.1-1.8); ALBUMIN 3.5 g/dL (3.0-4.8); ALT/SGPT 20 U/L (7-56); AST/SGOT 29 U/L (14-36); BLOOD UREA NITROGEN 9 mg/dL (7-21); GFR NON-AFRICAN AMERICAN > 60
[2018-04-09] MEDS: Insulin Reg-LOW-Coverage SC SCH ×3 (09:31→17:31)
[2018-04-09] MEDS: Potassium Chloride 20 mEq ER Tab PO SCH (09:38)
[2018-04-09] MEDS: Lidocaine 5% Patch TD SCH (09:38)
[2018-04-09] MEDS: Pantoprazole 40 mg EC Tab PO SCH (09:51)
[2018-04-09 15:12] VITALS: RESP 20; O2SAT 98
--- NOTE | 2018-04-09 16:18 | PN ---
DATE: 04/09/2018 SUBJECTIVE: The patient is in bed, in no acute distress, seen earlier this morning. PHYSICAL EXAMINATION: VITAL SIGNS: Temperature is 98, blood pressure is 156/70, respiratory rate of 18. HEENT: Examination of HEENT is unremarkable. NECK: Supple. LUNGS: Have decreased breath sounds. HEART: Normal S1 and S2. ABDOMEN: Soft. LABORATORY DATA: Laboratory examination reveals a white count of 7.2, hemoglobin of 11, platelets of 241. BUN of 9, creatinine of 0.8. Microbiology reveals the blood cultures are positive for sensitive staph aureus, the repeat blood cultures from 04/04/2018 are negative. Review of orders reveals the patient to be on nafcillin. ASSESSMENT AND PLAN: This is a 42-year-old female with sepsis with methicillin-susceptible Staphylococcus aureus bacteremia and right neck and chest cellulitis with abscess with septic thrombophlebitis in the right internal jugular, hepatitis C, history of intravenous drug abuse with heroin and also with morbid obesity with BMI of 47, on nafcillin. HIV is negative; however, the patient does have hepatitis C reactive, will need 4-6 weeks of antibiotics. The patient is not a candidate for home IV antibiotics because of her intravenous drug abuse on nafcillin. Moses Espinoza MD (Delete this signature block when dictator is a preceptor.)
[2018-04-10] MEDS: Heparin25000 units/250ml 1/2NS 25,000 UNITS/250 ML BAG IV PRN (03:49)
[2018-04-10] MEDS: Sodium Chloride 0.9% 1,000 ML IV SCH (03:59)
[2018-04-10 08:01] VITALS: BP 150/77; PULSE 61; TEMP 99
[2018-04-10] MEDS: Insulin Reg-LOW-Coverage SC SCH (09:24)
[2018-04-10] MEDS: Potassium Chloride 20 mEq ER Tab PO SCH (09:24)
[2018-04-10] MEDS: Pantoprazole 40 mg EC Tab PO SCH (09:25)
--- NOTE | 2018-04-10 12:11 | PN ---
DATE: 04/10/2018 SUBJECTIVE: The patient is in bed, was seen early this morning in 571. She is awake and alert and she is anxious. She wants to be discharge. I have explained to her the importance of intravenous antibiotics and complications have not being properly treated including paralysis and deaths. She understands. PHYSICAL EXAMINATION: VITAL SIGNS: Temperature is 99, blood pressure is 150/70 and respiratory rate of 18. HEENT: Unremarkable. NECK: Supple. LUNGS: Decreased breath sounds. HEART: Normal S1 and S2. ABDOMEN: Soft. LABORATORY DATA: Reveals a white count of 7.2, hemoglobin of 11, BUN of 9, creatinine of 0.8. Urinalysis is noted, elevated sed rate, C-reactive protein is reviewed. Toxicology is revealed positive urine for opiates and benzodiazepine. HIV is not reactive, hepatitis A and B is negative and C is reactive and microbiology reveals the blood cultures are positive for Staphylococcus aureus. ASSESSMENT AND PLAN: A 42-year-old female with morbid obesity, BMI of 46 with sepsis with sensitive Staphylococcus aureus bacteremia with chest cellulitis and neck cellulitis with abscess and septic thrombophlebitis in the right internal jugular, also with hepatitis C and the patient has intravenous drug abuse with heroin and currently on 4-6 weeks of antibiotics intravenously. Moses Espinoza MD
--- NOTE | 2018-04-10 22:12 | PN ---
DATE: 04/08/2018 SUBJECTIVE: The patient came in. The patient seems stable on IV antibiotics, problem getting IV. Planning to get an elevation of DVT. She has no other complaints. No nausea. No vomiting. PHYSICAL EXAMINATION VITAL SIGNS: On 04/08/2018, temperature 98.4, heart rate 63, blood pressure 123/73, respirations 18, saturation 96%. HEAD AND NECK: Normal. No JVD. No thyromegaly. CHEST: Clear bilateral. CARDIAC: First and second sounds normal. ABDOMEN: Soft, obese and nontender. EXTREMITIES: No edema. area is tender. LABORATORY DATA: Blood sugar 110 to 116. Sodium 140, potassium 3.4, chloride 108, bicarb 26, BUN 9, creatinine 1. calcium 8.8, 105. IMPRESSION AND PLAN: 1. Gram-positive coccemia. Continue IV antibiotics. We are treating the patient as possibly endocarditis. The patient could not get the CABRERA. 2. Hypokalemia, potassium replaced. 3. Deep venous thrombosis. Right internal jugular subclavian. Continue heparin IV. Still need IV access PICC line. 4. Drug abuse, heroin abuse. Patient is on Suboxone. She is on Xanax. She also needs to be followed as outpatient for that. 5. Obesity, diabetes, and hypertension. Continue current medication. Follow up clinically. Dom Steele MD
--- NOTE | 2018-04-10 23:12 | PN ---
DATE: 04/09/2018 SUBJECTIVE: The patient wants to go home, discussed with the patient she will stay, risk and benefits of treatment. PHYSICAL EXAMINATION: VITAL SIGNS: Temperature 98.6, heart rate 71, blood pressure 156/78, respirations 18, saturation 97% on room air. HEAD AND NECK: Normal. No JVD. No thyromegaly. CHEST: Clear bilaterally. CARDIAC: First sound and second sound normal. ABDOMEN: Soft, obese, nontender. EXTREMITIES: No edema. NEUROLOGIC: Normal. LABORATORY STUDIES: She has sodium 142, potassium 3.9, chloride 110. bicarb 24, BUN 9, creatinine 0.8. Liver function test is normal except , the patient's total protein 7.2, albumin 3.5. IMPRESSION AND PLAN: 1. Gram-positive we treating the patient has endocarditis, could not get a CABRERA, continue IV antibiotics as per Infectious Disease consults. Nafcillin IV to hypertension, diabetes, continue insulin coverage, continue Cozaar. 2. The patient have chronic anxiety versus benzodiazepine addiction, continue Xanax 1 mg three times a day. 3. Heroin use, the patient has multiple IV site infection, right cubital, right subclavian infection cellulitis versus abscess, continue nafcillin. The patient on Suboxone films, advised to get off heroin otherwise will be having endocarditis. Plan is to continue current therapy, follow up clinically and now we will monitor the patient. Dom Steele MD
--- NOTE | 2018-04-13 10:07 | DS ---
HISTORY OF PRESENT ILLNESS: A 42-year-old female admitted with IV heroin use disorder and she has Xanax on board 2 mg four times a day, came in with fever and found to have positive blood cultures x2, Gram-positive coccemia. She was started on IV Zosyn, vancomycin, initially switched to nafcillin with ID consultation, treated for possible endocarditis. She had a transthoracic echo, which was negative for endocarditis. Transesophageal echo was tried to be done. The patient pulled the tube out and it could not be done. The patient does have history of diabetes, hypertension, obesity, was treated with Suboxone films and she has been stable. The patient wants to go home against medical advice possibly tomorrow. Advised the risk and benefits about how life is turning. The patient is advised to come back if she got worse and to continue stay outside, in short not to use any heroin. For , supposedly if she came back, risk of including endocarditis and respiratory depression and use and seizure disorders from Xanax. The patient voiced of those and she signed against medical advice. PHYSICAL EXAMINATION: VITAL SIGNS: Temperature 98.8, , respiratory rate 18, saturating 98% on room air. HEAD AND NECK: Physical examination, no change. DISCHARGE DIAGNOSES: 1. Gram-positive coccemia, possible infected endocarditis. 2. Heroin drug use disorder. 3. Benzodiazepine use disorder. 4. Hypertension. 5. Diabetes. 6. Morbid obesity. 7. Deep venous thrombosis. Right internal jugular vein and subclavian. 8. Cellulitis, supraclavicular area with multiple lymphadenopathy area. The patient advised to stay in the hospital or come back to the hospital as soon as possible to continue her current therapy. Dom Steele MD
== END 2018-04-10 09:31 | disposition left against medical advice (07) | DRG 901 ==
LOC: ED 17:10 → ERH 20:27 → 2RNO 23:15 → 5RSO 04-07 23:13
PROVIDERS: ADMIT Internal Medicine; ATTEND Internal Medicine
PROC: B24BZZ4 Ultrasonography of Heart with Aorta, Transesophageal (ICD-10-PCS; principal; 2018-04-06 11:00)
DX: A41.01 Sepsis due to Methicillin susceptible Staphylococcus aureus (principal); B19.20 Unspecified viral hepatitis C without hepatic coma; E87.6 Hypokalemia; F11.23 Opioid dependence with withdrawal; F13.20 Sedative, hypnotic or anxiolytic dependence, uncomplicated; I82.621 Acute embolism and thrombosis of deep veins of right upper extremity; I82.B11 Acute embolism and thrombosis of right subclavian vein; I82.C19 Acute embolism and thrombosis of unspecified internal jugular vein; J44.9 Chronic obstructive pulmonary disease, unspecified; L02.413 Cutaneous abscess of right upper limb; L03.221 Cellulitis of neck; L03.313 Cellulitis of chest wall; D64.9 Anemia, unspecified; E11.9 Type 2 diabetes mellitus without complications; E66.01 Morbid (severe) obesity due to excess calories; F10.10 Alcohol abuse, uncomplicated; F17.210 Nicotine dependence, cigarettes, uncomplicated; F41.0 Panic disorder [episodic paroxysmal anxiety]; I10 Essential (primary) hypertension; I38 Endocarditis, valve unspecified; I80.9 Phlebitis and thrombophlebitis of unspecified site; I88.9 Nonspecific lymphadenitis, unspecified; Z53.8 Procedure and treatment not carried out for other reasons; Z68.42 Body mass index [BMI] 45.0-49.9, adult; Z79.84 Long term (current) use of oral hypoglycemic drugs; Z79.899 Other long term (current) drug therapy; Z80.3 Family history of malignant neoplasm of breast; Z80.7 Family history of other malignant neoplasms of lymphoid, hematopoietic and related tissues